=== PATIENT | male | born 1975 | race Native Hawaiian/Other Pacific Islander ===

== ENCOUNTER → 2017-08-25 | Outpatient (CLI) | payer BC ==
[2017-08-25 11:37] LABS: Basophils % (A) 1 %; Eosinophils # (A) 0.2 k/uL (0-0.7); Eosinophils % (A) 3 %; HGB 16.3 gm/dL (13.0-17.5); Lymphocytes # (A) 2.2 k/uL (1.0-4.8); Lymphocytes % (A) 30 %; MCH 29.6 pg (25.0-35.0); MCHC 34.7 g/dL (31.0-37.0); MCV 85.5 fL (80.0-100.0); Mean Platelet Volume 6.9; Monocytes # (A) 0.3 k/uL (0-1.0); Monocytes % (A) 4 %; Neutrophils # (A) 4.3 k/uL (1.3-7.7); Neutrophils % (A) 60 %; Platelet Count 214 k/uL (150-450); RDW 12.9 % (11.5-15.5); WBC 7.2 k/uL (3.8-10.6)
[2017-08-25 11:38] LABS: Partial Thromboplastin Time 23.8 sec (22.0-30.0); Prothrombin Time 10.2 sec (9.0-12.0)
--- NOTE | 2017-08-25 11:40 | XR ---
EXAMINATION TYPE: XR chest 2V DATE OF EXAM: 08/25/2017 COMPARISON: Chest x-ray June 05, 2015 HISTORY: Presurgical study. TECHNIQUE: Frontal and lateral views of the chest are obtained. FINDINGS: There is no focal air space opacity, pleural effusion, or pneumothorax seen. The cardiac silhouette size is within normal limits. Low lung volumes are redemonstrated. The osseous structures are intact. IMPRESSION: No acute cardiopulmonary process. No significant change from prior.
[2017-08-25 11:47] LABS: Appearance,Urine Clear (Clear); Bilirubin,Urine Negative (Negative); Blood,Urine Small (Negative); Color,Urine Yellow; Glucose,Urine (UA) Negative (Negative); Ketones,Urine Negative (Negative); Leukocyte Esterase,Urine Negative (Negative); Mucus,Urine Rare /hpf; Nitrite,Urine Negative (Negative); PH, Urine 6.5 (5.0-8.0); Protein,Urine Negative (Negative); RBC,Urine 14 /hpf (0-5); Specific Gravity,Urine 1.016 (1.001-1.035); Squamous Epithelial Cell,Urine <1 /hpf (0-4); Urobilinogen,Urine <2.0 mg/dL (<2.0); WBC,Urine <1 /hpf (0-5)
[2017-08-25 11:49] LABS: ALT 59 U/L (21-72); AST 31 U/L (17-59); Albumin 4.2 g/dL (3.5-5.0); Alkaline Phosphatase 82 U/L (38-126); Anion Gap 12 mmol/L; Blood Urea Nitrogen 14 mg/dL (9-20); Calcium 9.4 mg/dL (8.4-10.2); Carbon Dioxide 28 mmol/L (22-30); Chloride 105 mmol/L (98-107); Glucose 91 mg/dL (74-99); Sodium 145 mmol/L (137-145); Total Bilirubin 0.5 mg/dL (0.2-1.3); Total Protein 7.2 g/dL (6.3-8.2)
== END | disposition home or self-care (01) ==
LOC: LABPAT 10:38
PROVIDERS: ATTEND Orthopaedic Surgery Orthopaedic Surgery of the Spine
DX: Z01.818 Encounter for other preprocedural examination (principal); Z01.812 Encounter for preprocedural laboratory examination; M51.26 Other intervertebral disc displacement, lumbar region
CPT/HCPCS: 36415; 71046; 80053; 81001; 85025; 85610; 85730; 86850; 86900; 86901; 87070; 93005

== ENCOUNTER 2017-09-05 11:16 | Day surgery (SDC) | payer BC ==
[2017-08-31 10:05] VITALS: BMI 42.3
[~2017-09-05 11:16] MED LIST: BACITRACIN 50,000 UNIT, POLYMYXIN B 500,000 UNIT in SODIUM CHLORIDE 0.9% IRRIGATIO 1,00... IRRIGATION ONE; DEXAMETHASONE SOD PHOSPHATE 10 MG/ML 1 ML VIAL IV ONE; LIDOCAINE 1% 20 ML VIAL (10MG/ML) FOR IV START INTRADERMA PRN; MIDAZOLAM 2 MG/2 ML VIAL IV PRN; ONDANSETRON ODT 4 MG TAB PO ONE; SCOPOLAMINE 1.5MG/72HR PATCH TRANSDERM ONE; ceFAZolin IN SWFI 2 GM/20 ML SYRINGE IVP ONE; fentaNYL (PF) 50 MCG/ML 2 ML AMP IV PRN
[2017-09-05] MEDS: LACTATED RINGERS 1,000 ML IV SCH (11:43)
[2017-09-05] MEDS ORDERED: ONDANSETRON 4 MG/2 ML VIAL ONE (11:45)
[2017-09-05] MEDS ORDERED: ONDANSETRON 4 MG/2 ML VIAL IVP ONE (11:47)
[2017-09-05] MEDS ORDERED: LIDOCAINE 1% INJ 10MG/ML (20 ML MDV) ONE (12:44)
[2017-09-05] MEDS ORDERED: SUCCINYLCHOLINE CHLORIDE 100 MG/5 ML SYR IV ONE (12:44)
[2017-09-05] MEDS ORDERED: PROPOFOL 10 MG/ML 20 ML VIAL IV ONE (12:44)
[2017-09-05] MEDS ORDERED: fentaNYL (PF) 50 MCG/ML 2 ML AMP ONE (12:44)
[2017-09-05] MEDS ORDERED: MIDAZOLAM 2 MG/2 ML VIAL ONE (12:44)
[2017-09-05] MEDS ORDERED: LIDOCAINE 1%-EPI 1:100,000 20 ML VIAL SQ ONE ×2 (13:19→14:09)
[2017-09-05] MEDS ORDERED: THROMBIN (BOVINE) 5,000 UNIT VIAL TOPICAL ONE (13:22)
[2017-09-05] MEDS ORDERED: GELATIN SPONGE,ABSORB (LARGE) 1 EACH SPONGE TOPICAL ONE (13:22)
[2017-09-05] MEDS ORDERED: methylPREDNISolone ACETATE 80 MG/ML 1 ML VIAL MISCELLANE ONE (14:02)
--- NOTE | 2017-09-05 14:23 | FL ---
EXAMINATION TYPE: FL guidance operating room DATE OF EXAM: 09/05/2017 CLINICAL HISTORY: Lumbar laminectomy and discectomy TECHNIQUE: Fluoroscopy. COMPARISON: None. FINDINGS/IMPRESSION: Fluoroscopic guidance was provided during procedure performed by Dr. Hannah. A t otal of 4 seconds of fluoroscopic time was utilized during the procedure and 1 spot images was acquir ed and straightening localization of the lumbar spine.
[2017-09-05] MEDS ORDERED: DIAZEPAM 5 MG TAB PO PRN (14:32)
[2017-09-05] MEDS ORDERED: ONDANSETRON 4 MG/2 ML VIAL IVP PRN (14:32)
[2017-09-05] MEDS ORDERED: HYDROcodone/APAP 5-325MG 1 EACH TAB PO PRN (14:32)
[2017-09-05] MEDS ORDERED: BENZOCAINE/MENTHOL LOZENG 1 EACH LOZENGE MUCOUS MEM PRN (14:32)
[2017-09-05] MEDS ORDERED: MORPHINE SULFATE 4 MG/0.8 ML SYRINGE (INJ) IVP PRN (14:32)
[2017-09-05] MEDS ORDERED: MAGNESIUM HYDROXIDE 2,400 MG/10 ML CUP PO PRN (14:32)
--- NOTE | 2017-09-05 14:41 | P.OP ---
Date of Procedure: 09/05/17 Preoperative Diagnosis: Herniated nucleus pulposis, far lateral L4 5 Right lower extremity radiculopathy Degenerative disc disease Postoperative Diagnosis: Same Anesthesia: GETA Pathology: none sent Condition: stable Disposition: PACU Description of Procedure: BRIEF OPERATIVE NOTE Preoperative Diagnosis:Herniated nucleus pulposis, far lateral L4 5 Right lower extremity radiculopathy Degenerative disc disease Postoperative Diagnosis: Same Procedure: Laminectomy and decompression with foraminotomy and partial medial facetectomy L4 5 Discectomy for decompression L4 5 Use of fluoroscopic guidance Surgeon: Dr. Almonte Land Measurer: Chema Marte is present throughout the entire the case persistence during positioning, dissection, exposure, visualization, and all crucial elements of the case as well as closure. Anesthesia: General anesthesia Estimated blood loss:Less than 50 mL Complications: None apparent Components implanted:None Disposition: To recovery room in good stable condition. OPERATIVE INDICATIONS The patient has been having issues in their lower back and lower extremities. the patient was found have a far lateral disc herniation at L4 5 on the right which correlated well with his lower extremity symptoms and numbness and tingling. He was having progressive problems and pain and had some evidence of weakness in his right lower extremity. He has was significantly disrupting his ability to work and to do his regular daily activities. The patient has been through conservative treatment. he is not having any progress despite aggressive conservative treatment We discussed various treatment options including surgery, and the patient wishes to proceed with surgery We discussed the risk, patient's alternatives and benefits of surgery including but not limited to, risk of bleeding risk of infection, risk of need for further surgery , risk of decreased, loss of motion, loss of function, nerve damage, paralysis, heart attack, blindness and . OPERATIVE SUMMARY After discussing all the risks, patient alternatives and benefits at length, the patient elected to proceed with surgical intervention, signed informed consent, and presented for their procedure. The patient was seen and examined in the preoperative holding area and the surgical site was marked. The patient was given antibiotics and brought to the operating room. The patient was sedated and intubated by anesthesia in standard fashion. The patient was positioned on to the operating room table in a prone position on the appropriate frame which was well-padded and well molded. We were careful to pad any bony prominences and pressure points. We were careful to maintain the patient's cervical spine and good neutral alignment and position throughout. The patient was prepped and draped in a normal standard fashion. An appropriate timeout and keystone protocol performed. We were able to proceed with the surgery. Fluoroscopy was utilized to establish the appropriate level. The local wound area was infiltrated with local anesthetic. An incision was made at the midline longitudinally over the appropriate levels At L4 5. Dissection was taken down subcutaneously to the level of the fascia which was split midline. Dissection was taken over the lamina. Intraoperative fluoroscopy was taken which showed a marker at the appropriate level Of L4 5. With the appropriate level positively confirmed, we were able to proceed with laminectomy With partial facetectomy and foraminotomy at L4 5. The wound was copiously irrigated and suctioned dry as had been done periodically throughout the case. I performed a laminectomy with a combination of curettes and a high- speed bur and Kerrison rongeurs. A small medial facetectomy was performed again further access. A partial foraminotomy was also performed. Portions of the ligamentum flavum were taken down to expose the dura and traversing nerve root. had a partial medial facetectomy and did foraminotomy as well to gain further decompression. I was able to mobilize the traversing nerve root and gain access to the disc space. Note was made of obvious compression from the disc At the far lateral space. Protecting the soft tissue structures, a small annulotomy was established. I was able to perform discectomy and remove any extruded disc fragments and any loose fragments from within the disc itself. There is some disc desiccation noted. I was able to get good decompression at the neural foramen and remove far lateral disc herniation. I tried to preserve the disc annulus that appeared stable. There were no further extruded fragments noted. There is no evidence of dural tear or leak. Good hemostasis maintained. The wound was copiously irrigated and suctioned dry. Good decompression and discectomy was noted. We were able to proceed with closure. The fascia was closed for a watertight closure. The subcuticular tissue was closed with absorbable suture. The wound was cleaned and dried and dressed with the appropriate dressing. The drapes were broken down. The patient was gently rolled back onto their hospital bed being careful to maintain their cervical spine and good neutral alignment and position. They were woken up by anesthesia, extubated, and brought to the recovery room in good stable condition. The patient will be admitted to the hospital for observation and for appropriate postoperative care, medical management and monitoring. We will continue to follow them closely about the postoperative course.
[2017-09-05] MEDS ORDERED: NON-FORMULARY DRUG (Etanercept [Enbrel] 50 MG) SQ SCH (14:45)
[2017-09-05] MEDS: MORPHINE SULFATE 2 MG/ML SYRINGE IV PRN ×6 (14:51→15:29)
[2017-09-05] MEDS: MEPERIDINE 50 MG/ML SYRINGE IVP ONE ×2 (15:10→15:15)
[2017-09-05] MEDS: SODIUM CHLORIDE 0.9% 1,000 ML IV SCH (15:44)
[2017-09-05] MEDS ORDERED: ceFAZolin 3 GM in SODIUM CHLORIDE 0.9% 100 ML IVPB SCH (16:00)
[2017-09-05] MEDS: HYDROcodone/APAP 5-325MG 1 EACH TAB PO PRN ×2 (16:07→20:04)
[2017-09-05] MEDS: traMADol 50 MG TAB PO SCH ×2 (17:40→22:49)
[2017-09-05] MEDS: ceFAZolin IN SWFI 2 GM/20 ML SYRINGE IVP SCH (20:04)
[2017-09-05] MEDS: GABAPENTIN 100 MG CAP PO SCH (20:05)
[2017-09-06] MEDS: HYDROcodone/APAP 5-325MG 1 EACH TAB PO PRN ×2 (02:08→11:10)
[2017-09-06 02:34] VITALS: RESP 16
[2017-09-06] MEDS: SODIUM CHLORIDE 0.9% 1,000 ML IV SCH (05:17)
[2017-09-06] MEDS: ceFAZolin IN SWFI 2 GM/20 ML SYRINGE IVP SCH (05:44)
[2017-09-06] MEDS: LACTATED RINGERS 1,000 ML IV SCH (05:55)
[2017-09-06 06:48] VITALS: BP 116/70; PULSE 81; TEMP 97.8
[2017-09-06] MEDS: traMADol 50 MG TAB PO SCH (07:00)
[2017-09-06] MEDS ORDERED: HYDROmorphone 4 MG TABLET PO PRN (08:31)
[2017-09-06] MEDS ORDERED: SENNOSIDES-DOCUSATE SODIUM 1 EACH TAB PO SCH (09:00)
[2017-09-06] MEDS: GABAPENTIN 100 MG CAP PO SCH (11:22)
== END 2017-09-06 11:20 | disposition home or self-care (01) ==
LOC: OR 11:16 → 3SUR 14:27 → OR 09-06 11:20
PROVIDERS: ATTEND Orthopaedic Surgery Orthopaedic Surgery of the Spine
DX: M51.16 Intervertebral disc disorders with radiculopathy, lumbar region (principal); Z72.0 Tobacco use; Z79.891 Long term (current) use of opiate analgesic; L40.9 Psoriasis, unspecified; Z79.899 Other long term (current) drug therapy; Z88.6 Allergy status to analgesic agent
CPT/HCPCS: 63030; 94760; 97161; J2250; J1040; J1100; J2175; J2405; J2001; J3010; J2270 ×2; J0330; J2704; J0690 ×2; 86850; 86900; 86901

== ENCOUNTER → 2017-10-20 | Outpatient (CLI) | payer BC ==
--- NOTE | 2017-10-21 00:10 | MR ---
EXAMINATION TYPE: MR lumbar spine wo/w con DATE OF EXAM: 10/20/2017 COMPARISON: NONE HISTORY: Back pain TECHNIQUE: Multiplanar, multisequence images of the lumbar spine were acquired utilizing 7.5 mL intravenous gado linium contrast. Lumbar vertebra have normal alignment. There is posterior mild disc herniation at L4-5 posteriorly on the right side. There is right side L4 laminectomy defect. The sacroiliac joints are intact. There i s no lumbar paraspinal mass. I see no pathologic enhancement. There is some narrowing of the spinal c anal at L4-5. There is epidural fat posteriorly on the right side related to the surgery. There is th ickening of the right side L4 V nerve root. IMPRESSION: Postsurgical changes at L4-5 on the right side. Perineural thickening involving L4 V nerve root consi stent with scarring. There is a mild relative spinal stenosis at L4-5. Small posterior L4-5 disc bulg e.
== END | disposition home or self-care (01) ==
LOC: RADMRIMAIN 21:01
PROVIDERS: ATTEND Physician Assistant
DX: M48.061 Spinal stenosis, lumbar region without neurogenic claudication (principal); M51.26 Other intervertebral disc displacement, lumbar region; M51.16 Intervertebral disc disorders with radiculopathy, lumbar region; L40.9 Psoriasis, unspecified; Z98.890 Other specified postprocedural states
CPT/HCPCS: 72158; A9581

== ENCOUNTER → 2017-11-18 | Outpatient (CLI) | payer BC ==
[2017-11-18 09:36] LABS: Appearance,Urine Clear (Clear); Bilirubin,Urine Negative (Negative); Blood,Urine Small (Negative); Color,Urine Light Yellow; Glucose,Urine (UA) Negative (Negative); Ketones,Urine Negative (Negative); Leukocyte Esterase,Urine Negative (Negative); Mucus,Urine Rare /hpf; Nitrite,Urine Negative (Negative); PH, Urine 5.5 (5.0-8.0); Protein,Urine Negative (Negative); RBC,Urine 3 /hpf (0-5); Specific Gravity,Urine 1.013 (1.001-1.035); Urobilinogen,Urine <2.0 mg/dL (<2.0)
[2017-11-18 09:41] LABS: Basophils % (A) 1 %; Eosinophils # (A) 0.2 k/uL (0-0.7); Eosinophils % (A) 3 %; HCT 45.1 % (39.0-53.0); HGB 15.4 gm/dL (13.0-17.5); Lymphocytes # (A) 1.5 k/uL (1.0-4.8); Lymphocytes % (A) 27 %; MCH 30.2 pg (25.0-35.0); MCHC 34.1 g/dL (31.0-37.0); MCV 88.6 fL (80.0-100.0); Mean Platelet Volume 6.7; Monocytes # (A) 0.3 k/uL (0-1.0); Monocytes % (A) 5 %; Neutrophils # (A) 3.6 k/uL (1.3-7.7); Neutrophils % (A) 63 %; Platelet Count 188 k/uL (150-450); RBC 5.09 m/uL (4.30-5.90); RDW 13.5 % (11.5-15.5); WBC 5.7 k/uL (3.8-10.6)
[2017-11-18 09:45] LABS: Partial Thromboplastin Time 24.2 sec (22.0-30.0); Prothrombin Time 10.1 sec (9.0-12.0)
[2017-11-18 10:15] LABS: Anion Gap 10 mmol/L; Blood Urea Nitrogen 15 mg/dL (9-20); Calcium 9.1 mg/dL (8.4-10.2); Carbon Dioxide 27 mmol/L (22-30); Chloride 106 mmol/L (98-107); Glucose 103 mg/dL (74-99); Potassium 5.2 mmol/L (3.5-5.1); Sodium 143 mmol/L (137-145)
--- NOTE | 2017-11-18 12:22 | XR ---
EXAMINATION TYPE: XR chest 2V DATE OF EXAM: 11/18/2017 COMPARISON: Prior chest 08/25/2017 HISTORY: Preop TECHNIQUE: Frontal and lateral views of the chest are obtained. FINDINGS: There is no focal air space opacity, pleural effusion, or pneumothorax seen. The cardiac silhouette size is within normal limits. The osseous structures are intact. IMPRESSION: No acute cardiopulmonary process.
== END | disposition home or self-care (01) ==
LOC: LABPAT 08:34
PROVIDERS: ATTEND Orthopaedic Surgery Orthopaedic Surgery of the Spine
DX: Z01.818 Encounter for other preprocedural examination (principal); Z01.812 Encounter for preprocedural laboratory examination; M51.16 Intervertebral disc disorders with radiculopathy, lumbar region
CPT/HCPCS: 71046; 80048; 81001; 85025; 85610; 85730; 87070; 93005

== ENCOUNTER 2017-11-23 09:06 | Inpatient (IN) | payer BC, OTHER ==
[2017-11-15 13:35] VITALS: BMI 44.1
[~2017-11-23 09:06] MED LIST changes: -LIDOCAINE 1% 20 ML VIAL (10MG/ML) FOR IV START INTRADERMA PRN; +ONDANSETRON 4 MG/2 ML VIAL IVP ONE; -ONDANSETRON ODT 4 MG TAB PO ONE; -ceFAZolin IN SWFI 2 GM/20 ML SYRINGE IVP ONE
[2017-11-23] MEDS ORDERED: LIDOCAINE 1% 20 ML VIAL (10MG/ML) FOR IV START INTRADERMA ONE (11:45)
[2017-11-23] MEDS: LACTATED RINGERS 1,000 ML IV SCH (11:55)
[2017-11-23] MEDS ORDERED: ROCURONIUM BROMIDE 10 MG/ML 10 ML VIAL IV ONE (12:31)
[2017-11-23] MEDS ORDERED: LIDOCAINE 1% INJ 10MG/ML (20 ML MDV) ONE (12:31)
[2017-11-23] MEDS ORDERED: fentaNYL (PF) 50 MCG/ML 2 ML AMP ONE (12:31)
[2017-11-23] MEDS ORDERED: MIDAZOLAM 2 MG/2 ML VIAL ONE (12:31)
[2017-11-23] MEDS ORDERED: PROPOFOL 10 MG/ML 20 ML VIAL IV ONE (12:31)
[2017-11-23] MEDS ORDERED: HYDROmorphone (PF) 1 MG/ML ONE (12:31)
[2017-11-23] MEDS ORDERED: SUCCINYLCHOLINE CHLORIDE 100 MG/5 ML SYR IV ONE (12:31)
[2017-11-23] MEDS ORDERED: LIDOCAINE 0.5%-EPI 1:200,000 50 ML VIAL SQ ONE (12:35)
[2017-11-23] MEDS ORDERED: GELATIN SPONGE,ABSORB (LARGE) 1 EACH SPONGE TOPICAL ONE (12:35)
[2017-11-23] MEDS ORDERED: THROMBIN (BOVINE) 5,000 UNIT VIAL TOPICAL ONE (12:35)
[2017-11-23] MEDS ORDERED: LACTATED RINGERS 1,000 ML IV ONE ×2 (13:30→15:15)
[2017-11-23] MEDS ORDERED: HYDROcodone/APAP 5-325MG 1 EACH TAB PO PRN (15:52)
[2017-11-23] MEDS ORDERED: HYDROmorphone 1 MG/ML 1 ML SYRINGE IVP PRN (15:52)
[2017-11-23] MEDS ORDERED: ONDANSETRON 4 MG/2 ML VIAL IVP PRN (15:52)
[2017-11-23] MEDS ORDERED: BENZOCAINE/MENTHOL LOZENG 1 EACH LOZENGE MUCOUS MEM PRN (15:52)
[2017-11-23] MEDS ORDERED: DIAZEPAM 5 MG TAB PO PRN (15:52)
[2017-11-23] MEDS ORDERED: HYDROmorphone 0.5 MG/0.5 ML SYRINGE IVP PRN (15:52)
--- NOTE | 2017-11-23 15:57 | FL ---
EXAMINATION TYPE: FL guidance operating room, XR lumbar spine 2 or 3V DATE OF EXAM: 11/23/2017 CLINICAL HISTORY: Low back pain. TECHNIQUE: Fluoroscopy. Limited intraoperative 2 views lumbar spine COMPARISON: None. FINDINGS: Fluoroscopic guidance was provided during minimally invasive lumbar fusion procedure perfo rmed by Dr. Almonte. A total of 1 minute 48 seconds of fluoroscopic time was utilized during the proce dure and 2 spot intraoperative images are acquired. Images acquired show placement of metallic disc spacer and posterior interpedicular rods and screws a t lumbosacral junction with satisfactory alignment on intraoperative images saved. IMPRESSION: As Above.
[2017-11-23] MEDS ORDERED: ceFAZolin IN SWFI 2 GM/20 ML SYRINGE IVP SCH (16:00)
[2017-11-23] MEDS: HYDROmorphone 1 MG/ML 1 ML SYRINGE IVP ONE ×4 (16:00→17:06)
[2017-11-23] MEDS ORDERED: NON-FORMULARY DRUG (Etanercept [Enbrel] 50 MG) SQ SCH (16:00)
--- NOTE | 2017-11-23 16:03 | P.OP ---
Date of Procedure: 11/23/17 Preoperative Diagnosis: Recurrent disc herniation L4 5, right lower extremity radiculopathy with weakness, history of laminectomy discectomy L4 5, degenerative disc disease L4 5 Postoperative Diagnosis: Same Anesthesia: GETA Pathology: none sent Condition: stable Disposition: PACU Description of Procedure: DESCRIPTION OF PROCEDURE(S): BRIEF OPERATIVE NOTE Preoperative Diagnosis: Disc herniation L4 5, recurrent disc herniation L4 5, lower extremity radiculopathy with weakness, low back pain, history of laminectomy discectomy L4 5 Postoperative Diagnosis: Same Procedure: Revision Laminectomy and decompression L4 5 Minimally invasive Posterior lateral decompression and facet fusion L4 5 Minimally invasive Transforaminal lumbar interbody fusion for a 360 fusion L4 5 Discectomy for decompression L4 5 Placement of interbody graft L4 5 Local autogenous bone grafting Bone marrow aspiration via the pedicle of L4 on the right Use of Cell Saver Use of bone graft extenders Surgeon: Dr. Almonte Float Phlebotomist: Chema BOONE who is present throughout the entire the case persistence during positioning, dissection, exposure, visualization, and all crucial elements of the case as well as closure. Anesthesia: General anesthesia per Dr. Dr. Haque Estimated blood loss: Approximately 300 mL Complications: None apparent Components implanted: K2M minimally invasive [place] pedicle screw system with Bryan expandable interbody cage and 1 osteo amp sponge and 30 mL DBX bone fibers to supplemental local autogenous bone graft and bone marrow aspirate Disposition: To recovery room in good stable condition. OPERATIVE INDICATIONS The patient has had severe issues in their lower back and lower extremities. He initially sustained an injury when working where he sustained a disc herniation at L4 5. He underwent conservative treatment for this but failed conservative treatment and went on to have a laminectomy and discectomy at L4 5. He initially was doing quite well making good improvement however injury was significant at that level and had recurrence of the disc herniation at that level despite his initial decompression surgery. The patient had severe recurrence of his right lower extremity radiculopathy was becoming somewhat incapacitated due to this. He was unable to mobilize well unable to tolerate even light activities at home. He was unable to work. The patient has been through conservative treatment. He is not having any benefit despite aggressive conservative treatment. With the recurrent issue and the injury to the disc as well as the potential for recurrence again was felt that he would be a candidate for revision decompression with fusion at L4 5. We discussed the different treatment options ranging from revision decompression alone and discectomy with the possibility of decompression with fusion and he elected proceed with decompression and fusion. We discussed various treatment options including surgery, and the patient wishes to proceed with surgery We discussed the risk, patient's alternatives and benefits of surgery including but not limited to, risk of bleeding risk of infection, risk of need for further surgery , risk of decreased, loss of motion, muscle function, malunion nonunion, hardware failure, nerve damage, paralysis, heart attack, blindness and . OPERATIVE SUMMARY After discussing all the risks, patient alternatives and benefits at length, the patient elected to proceed with surgical intervention, signed informed consent, and presented for their procedure. The patient was seen and examined in the preoperative holding area and the surgical site was marked. The patient was given antibiotics and brought to the operating room. The patient was sedated and intubated by anesthesia in standard fashion. The patient was positioned on to the operating room table in a prone position on the appropriate frame which was well-padded and well molded. We were careful to pad any bony prominences and pressure points. We were careful to maintain the patient's cervical spine and good neutral alignment and position throughout. The patient was prepped and draped in a normal standard fashion. An appropriate timeout and keystone protocol performed. We were able to proceed with the surgery. The local wound area was infiltrated with local anesthetic. I was able utilize C-arm guidance to establish appropriate position over the pedicles bilaterally at the appropriate levels at L4 5. The patient's midline incision was well-healed. He does have eczema globally over his body significantly but we were able to avoid active eczema spots with incisions today. With the appropriate levels confirmed was able to make small stab incisions over the appropriate pedicle sites bilaterally at L4 5. Utilizing C- arm in his house able to establish a Jamshidi needle over the lateral aspect of the pedicle and advanced the trocar into the pedicle being careful not to breech superiorly inferiorly medially or laterally. Position was confirmed regularly with AP and lateral images on C-arm. I was able to establish the trocar into the pedicle appropriately into the posterior aspect of the vertebral body bilaterally at the appropriate levels of L4 5. This was done at each of the pedicle positions and each of the vertebrae. I was able place the guidewire into the trocar and into the vertebral body appropriately under C-arm guidance. Dissection was taken down over the wire to the appropriate starting position for the screw placed. The appropriate length screw was chosen, threaded over the guidewire and screwed appropriately into the pedicle and vertebral body under C-arm guidance in excellent alignment and position with good bony purchase. This is done at each of the screw sites at the appropriate levels at L4 5 bilaterally. At L4 on the right I did use a trocar to aspirate bone marrow aspirate from the vertebrae to be used later for supplementing the bone graft. With the screws intact I extended the incision to connect the screw hole sites on the most symptomatic side on the right. I had to remove small parts of the iliac crest to in order to establish the appropriate position of the retractor. All of the bone that was removed was saved for bone grafting. I dissected down to establish access over the pars and lamina to the base of the spinous process. I was able to expose the facet joint. The capsule the facet was taken down and showed some facet arthrosis at the joint. I was able to use a combination of curettes and Kerrison rongeurs and a high-speed drill to take down the facet joint and do a facetectomy. Partial laminectomy was also performed. I was able get excellent foraminal decompression and central decompression with undermining across midline to perform a laminectomy centrally and contralaterally. As able get good central decompression. The ligamentum flavum was taken down to further decompress centrally and at bilateral neural foramen. I was able to expose the disc space and visualize the traversing nerve root. Note was made of recurrent disc herniation at the far lateral aspect at the L4 5 level at the level causing further compression of the nerve root. I was able to remove any recurrent disc herniation at any other loose fragments to get further decompression from the discectomy. I was able to establish a annulotomy at the appropriate level protecting soft tissue and neural structures. Note was made of some disc desiccation at the disc. I performed a complete discectomy with accommodation of curettes and rasps and scrapers. I was able get good endplate preparation at the disc space at L4 5. I sized for the appropriate size interbody spacer protecting the soft tissue and neural structures. The wound was copiously irrigated and suctioned dry. There is no evidence of any dural tear or leak. I was able to pack the disc space with local autogenous bone graft as well as a small amount of bone graft which was also placed into the interbody cage itself. Protecting the soft tissue structures and neural structures I was able place the interbody cage in good alignment and good position with good fit and fill at the interbody space. His issues was confirmed with C-arm guidance. Good hemostasis maintained. There is no evidence of any dural tear or leak. The wound was irrigated and suctioned dry. With the hardware intact, intraoperative C-arm imaging was again taken which showed good alignment and position of the hardware at the appropriate levels. We were then able to measure, contour and place the rods and appropriate hardware bilaterally. I was able to place capcrews, tighten them down, and torque them with the torque screwdriver appropriately. With this intact I was able to place the local autogenous bone graft with additional bone graft enhancer as necessary into the posterior lateral gutters over the decorticated transverse processes. The remainder of the bone graft was placed over the facet joint on the contralateral side after taking down the facet joint capsule. With the bone graft intact, a stable construct, and good decompression at the appropriate levels, we were able to proceed with closure. Good hemostasis was maintained. There is no evidence of dural tear or leak. The fascia was closed for a watertight closure. he subcuticular tissue was closed with absorbable suture. The wound was cleaned and dried and dressed with the appropriate dressing. The drapes were broken down. The patient was gently rolled back onto their hospital bed being careful to maintain their cervical spine and good neutral alignment and position. They were woken up by anesthesia, extubated, and brought to the recovery room in good stable condition. The patient will be admitted to the hospital for appropriate postoperative care , medical management and monitoring. We will continue to follow them closely about the postoperative course.
[2017-11-23] MEDS ORDERED: MIDAZOLAM 2 MG/2 ML VIAL IVP ONE (16:25)
[2017-11-23] MEDS: MEPERIDINE 50 MG/ML SYRINGE IVP ONE ×2 (17:20→17:25)
[2017-11-23] MEDS ORDERED: diphenhydrAMINE 50 MG/ML 1 ML VIAL IVP ONE (17:25)
[2017-11-23] MEDS: HYDROmorphone 0.5 MG/0.5 ML SYRINGE IVP PRN ×2 (18:33→22:34)
[2017-11-23] MEDS: HYDROcodone/APAP 5-325MG 1 EACH TAB PO PRN (20:42)
[2017-11-23] MEDS: SODIUM CHLORIDE 0.9% 1,000 ML IV SCH (20:55)
[2017-11-23] MEDS: GABAPENTIN 400 MG CAP PO SCH (21:10)
[2017-11-24] MEDS: HYDROmorphone 0.5 MG/0.5 ML SYRINGE IVP PRN ×4 (03:05→19:54)
[2017-11-24] MEDS: SODIUM CHLORIDE 0.9% 1,000 ML IV SCH ×2 (05:00→22:28)
[2017-11-24] MEDS: GABAPENTIN 400 MG CAP PO SCH ×3 (05:04→20:13)
[2017-11-24] MEDS: HYDROcodone/APAP 5-325MG 1 EACH TAB PO PRN ×3 (05:04→21:28)
[2017-11-24] MEDS: LACTATED RINGERS 1,000 ML IV SCH (05:08)
[2017-11-24 09:29] LABS: Basophils % (A) 0 %; Eosinophils # (A) 0.1 k/uL (0-0.7); Eosinophils % (A) 2 %; HCT 39.9 % (39.0-53.0); HGB 13.6 gm/dL (13.0-17.5); Lymphocytes # (A) 1.5 k/uL (1.0-4.8); Lymphocytes % (A) 22 %; MCH 30.1 pg (25.0-35.0); MCV 88.5 fL (80.0-100.0); Mean Platelet Volume 6.9; Monocytes # (A) 0.3 k/uL (0-1.0); Monocytes % (A) 5 %; Neutrophils # (A) 4.9 k/uL (1.3-7.7); Neutrophils % (A) 70 %; Platelet Count 182 k/uL (150-450); RBC 4.51 m/uL (4.30-5.90); RDW 13.5 % (11.5-15.5); WBC 6.9 k/uL (3.8-10.6)
[2017-11-24 09:35] LABS: Anion Gap 6 mmol/L; Blood Urea Nitrogen 14 mg/dL (9-20); Calcium 8.3 mg/dL (8.4-10.2); Carbon Dioxide 29 mmol/L (22-30); Chloride 103 mmol/L (98-107); Glucose 92 mg/dL (74-99); Potassium 3.9 mmol/L (3.5-5.1); Sodium 138 mmol/L (137-145)
[2017-11-24] MEDS: SENNOSIDES-DOCUSATE SODIUM 1 EACH TAB PO SCH (11:10)
[2017-11-24] MEDS: NICOTINE 21MG/24HR PATCH TRANSDERM SCH (12:48)
--- NOTE | 2017-11-24 12:59 | P.PN ---
Progress Note - Text Progress Note Date: 11/24/17 Postoperative day #1 Patient is seen and examined today at bedside. The patient has some pain around the surgical site as expected. Pain is being controlled with medication. He feels his leg is still having some numbness but is not as painful. He has been up in in the hallways ambulate with walker Physical Exam Afebrile with stable vital signs Abdomen is soft nontender. Chest has good excursion deep and space expiration The incision site is clean dry and intact. No erythema there is no purulence. There was some small drainage at the site but it appears to be stable Extremities have not had neurologic change from prior to surgery. He has some weakness at his EHL which is unchanged prior to surgery. His good plantarflexion Calves and thighs were soft nontender without evidence of DVT. Assessment/Plan Postoperative day #1 status post minimally invasive decompression and fusion with revision decompression at L4 5 for his disc herniation with recurrence in his right lower extremity radiculopathy and weakness Patient is progressing as expected from the surgery. He still having some neurologic issues at his right lower extremity but these have not worsened since his surgery. We will see how he continues to improve as he mobilizes further We will continue to increase the patient's mobilization with therapy. We will continue pain control with oral or IV medications. We'll continue to follow patient closely. Hopefully he'll be okay for discharge home in the next 1 or 2 days. He would like to try to shower and I think it would be okay as long as he is a waterproof Tegaderm intact around his incision sites.
[2017-11-24] MEDS ORDERED: methylPREDNISolone SOD SUCCI 125 MG/2 ML VIAL IV STA (20:29)
--- NOTE | 2017-11-24 21:38 | XR ---
PROCEDURE: XR lumbar spine 3V DATE AND TIME: 11/24/2017 9:00 PM REFERRING PHYSICIAN: Joshua Almonte DO CLINICAL INDICATION: PHH, pain in foot TECHNIQUE: Department protocol. COMPARISON: None FINDINGS: The orthopedic hardware is intact without radiographic findings. There is no fracture or ma lalignment. The soft tissues are unremarkable. Multilevel degenerative facet changes are noted, moderate plus in degree. Multilevel [id number] degenerative disc changes. IMPRESSION: NO ACUTE PROCESS.
--- NOTE | 2017-11-24 21:49 | P.CONS ---
History of Present Illness - Reason for Consult Consult date: 11/24/17 Medical management - Chief Complaint Revision laminectomy L4-L5 - History of Present Illness Patient is a 42-year-old male with a known history of rheumatoid arthritis, psoriatic since and work-related injury to the back/disc bulging and previous history of L4-L5 laminectomy was admitted to the hospital for revision surgery. Patient has been having worsening right lower extremity radical for the pain from back since March 2017. Patient was admitted to the hospital for revision of laminectomy. Patient tolerated the procedure well. Currently pain is fairly controlled. Complaining of right lower extremities numbness otherwise. Able to flex his right foot slowly. No complaints of chest pain or shortness of breath. No nausea vomiting or abdominal pain. No fever no chills. Review of Systems Constitutional: Patient denies any fever or chills . No generalized weakness or weight loss. Abdomen: Patient denied nausea vomiting and diarrhea and abdominal pain. Cardiovascular: Patient denies any chest pain or short of breath no palpitations. Respiratory: patient denied any cough is from production. No shortness of breath Neurologic: Patient denied any numbness or tingling headache. Musculoskeletal: Patient denies any complaints of joint swelling or deformity. Right lower extremity numbness. Skin: Negative Psychiatric: Negative Endocrine: No heat or cold intolerance. No recent weight gain. Genitourinary: No dysuria or hematuria. All other 14 point ROS negative except the above Past Medical History Past Medical History: Pneumonia, Rheumatoid Arthritis (RA), Skin Disorder Additional Past Medical History / Comment(s): psoriasis, fell and work- injured back-bulging disk, History of Any Multi-Drug Resistant Organisms: None Reported Past Surgical History: Appendectomy, Back Surgery Additional Past Surgical History / Comment(s): Colonoscopy, laminectomy Past Anesthesia/Blood Transfusion Reactions: Previous Problems w/ Anesthesia, Motion Sickness Additional Past Anesthesia/Blood Transfusion Reaction / Comm: diff coming out one time, mother-had hard to come out after heart surgery Past Psychological History: No Psychological Hx Reported Smoking Status: Current every day smoker Past Alcohol Use History: Occasional Additional Past Alcohol Use History / Comment(s): Has smoked since 12-13 , yrs old 1/2-1 PPD. Past Drug Use History: None Reported - Past Family History Mother Family Medical History: Congestive Heart Failure (CHF), Coronary Artery Disease (CAD) Father Family Medical History: Cancer Medications and Allergies Home Medications Medication Instructions Recorded Confirmed Type Etanercept [Enbrel] 50 mg SQ Q14D 08/31/17 11/23/17 History traMADol HCL [Ultram] 50 - 100 mg PO Q6HR PRN 08/31/17 11/23/17 History Gabapentin 1,600 mg PO HS 11/15/17 11/23/17 History Gabapentin 800 mg PO BID@0530,1300 11/15/17 11/23/17 History HYDROcodone/APAP 5-325MG [[place] 5] 1 tab PO Q8HR PRN 11/15/17 11/23/17 History Allergies Allergy/AdvReac Type Severity Reaction Status Date / Time aspirin Allergy Rash/Hives Verified 11/23/17 19:13 ibuprofen [From Motrin] Allergy Swelling Verified 11/23/17 19:13 NSAIDS (Non-Steroidal Allergy Rash/Hives Verified 11/23/17 19:13 Anti-Inflamma venom-honey bee Allergy Anaphylaxis Verified 11/23/17 19:13 [bee venom (honey bee)] Physical Exam Vitals: Vital Signs Temp Pulse Pulse Resp BP Pulse Ox 11/24/17 14:08 99.3 F 90 19 134/84 93 L 11/24/17 09:00 99.4 F 76 18 104/63 97 11/23/17 23:55 99.7 F H 96 16 125/68 94 L 11/23/17 20:00 92 126/60 11/23/17 19:45 98 140/67 11/23/17 19:30 95 144/72 11/23/17 19:15 97 128/76 11/23/17 19:00 80 121/59 11/23/17 18:45 72 113/51 11/23/17 18:30 106 H 112/56 11/23/17 18:24 18 11/23/17 18:15 91 125/56 11/23/17 18:00 98.6 F 102 H 17 131/65 93 L 11/23/17 17:30 104 H 18 141/67 97 11/23/17 17:15 101 H 18 157/80 97 11/23/17 16:54 91 16 147/73 100 11/23/17 16:39 106 H 16 130/58 92 L 11/23/17 16:24 101 H 18 130/58 96 11/23/17 16:09 97.0 F L 103 H 16 138/73 96 Intake and Output 11/23/17 11/24/17 11/24/17 22:59 06:59 14:59 Intake Total 895 673 7288 Output Total 850 50 Balance 70 750 1560 Intake: IV 700 Intake, IV Titration 800 600 Amount Sodium Chloride 0.9% 1, 600 600 000 ml @ 75 mls/hr IV . [id number] [facility] Rx#:[id number] ceFAZolin 3 gm In Sodium 200 Chloride 0.9% 50 ml @ 100 mls/hr IVPB Q8H [facility] Rx#: [id number] Oral 220 960 Output: Drainage 50 Left Upper Thigh 50 Urine 550 Estimated Blood Loss 300 Other: Voiding Method Urinal # Voids 3 1 Weight 120.202 kg PHYSICAL EXAMINATION: Patient is lying in the bed comfortably, no acute distress, awake alert and oriented.. HEENT: Normocephalic. Neck is supple. Pupils reactive. Nostrils clear. Oral cavity is moist. Ears reveal no drainage. Neck reveals no JVD, carotid bruits, or thyromegaly. CHEST EXAMINATION: Trachea is central. Symmetrical expansion. Bibasilar diminished air entry. Lung dean clear to auscultation and percussion. CARDIAC: Normal S1, S2 with no gallops. No murmurs ABDOMEN: Soft. Bowel sounds normal. No organomegaly. No abdominal bruits. Extremities: reveal no edema. No clubbing or cyanosis Neurologically awake, alert, oriented x3 with well-coordinated movements. No focal deficits noted Skin: Patient does have psoriatic skin lesions and discoloration. not active. Psychiatric: Coperative. Nonsuicidal Musculoskeletal: No joint swelling or deformity. Decreased range of motion of right foot and right lower extremities.. Results CBC & Chem 7: 11/24/17 08:48 11/24/17 08:48 Labs: Abnormal Lab Results - Last 24 Hours (Table) 11/24/17 Range/Units 08:48 Calcium 8.3 L (8.4-10.2) mg/dL Assessment and Plan Assessment: Status post revision laminectomy of L4-L5 due to worsening radiculopathy pain Rheumatoid arthritis Psoriasis Currently everyday smoker Chronic back pain with disc bulging History of laminectomy Morbid obesity BMI 44.1 DVT prophylaxis. SCDs. No heparin due to neurological surgery. Plan: Patient be continued on pain management and bowel regimen. Continue with a incentive spirometry and SCDs. Continue the home medications and further recommendations based on clinical course. Smoking cessation has been counseled extensively. Will follow closely Further recommendations based on the clinical course. Time with Patient: Greater than 30
[2017-11-25] MEDS: HYDROmorphone 0.5 MG/0.5 ML SYRINGE IVP PRN ×3 (00:04→07:19)
[2017-11-25] MEDS: GABAPENTIN 400 MG CAP PO SCH ×3 (05:40→20:32)
[2017-11-25] MEDS: LACTATED RINGERS 1,000 ML IV SCH (05:42)
[2017-11-25 07:34] VITALS: RESP 16
[2017-11-25] MEDS: SODIUM CHLORIDE 0.9% 1,000 ML IV SCH ×2 (08:44→20:32)
[2017-11-25] MEDS: SENNOSIDES-DOCUSATE SODIUM 1 EACH TAB PO SCH (08:47)
[2017-11-25] MEDS: HYDROcodone/APAP 5-325MG 1 EACH TAB PO PRN ×4 (08:47→23:17)
[2017-11-25] MEDS: NICOTINE 21MG/24HR PATCH TRANSDERM SCH (08:48)
[2017-11-25] MEDS ORDERED: CYCLOBENZAPRINE 10 MG TAB PO PRN (08:57)
--- NOTE | 2017-11-25 08:57 | P.PN ---
Progress Note - Text Progress Note Date: 11/25/17 Orthopedic Spine Patient is a pleasant 43-year-old male who is seen and examined at the bedside following minimally invasive posterior lateral decompression and fusion performed Tuesday. Patient continues to have significant pain in the surgical sites and significant right lower extremity radiculopathy. He has been attempting to increase his ambulation. He has been ambulating slowly to part of the hallways. He continues to require Dilaudid IV and oral [place] for pain control. He has not been taking a muscle relaxer. He is known to take [place] an outpatient setting for pain control. He states he has not had a bowel movement since his admittance but is passing gas. He denies specific abdominal pain. Currently does not complain of nausea, vomiting, fever, or chills. Patient states pain has been fairly well controlled. Patient is eating and voiding freely without difficulty. Physical Exam Lumbar Fusion: Status post surgical day number 2 Patient is awake, alert, and oriented 3 Vital signs stable Good chest excursion with deep inspiration and expiration Abdomen soft nontender Dorsiflexion, plantarflexion, and extensor hallucis longus positive sustained bilaterally No signs or symptoms of DVT; no calf pain; pneumatic cuffs not currently intact bilateral lower extremities Dressing is clean, dry, and intact; no erythema, purulence, or signs of infection Neurovascularly intact bilaterally lower extremities Evidence of significant plaque psoriasis over the back and bilateral lower extremities Assessment: L4-5 minimally invasive posterior lateral decompression and fusion with transforaminal lumbar interbody fusion Low back pain Right lower extremity radiculopathy Plaque psoriasis Plan: 1. Ambulate as tolerated; work with Physical Therapy to increase mobilization 2. Continue pain control with IV and oral medications; We will plan to add Flexeril 10 mg which he may take for muscle spasms of the lumbar spine; we'll plan to start weaning off IV Dilaudid in anticipation for discharge 3. Telfa and Tegaderm dressing to remain intact 4. Medical management can continue to manage patient for patient's other medical issues 5. We will continue to follow the patient closely; patient is able to have some improvement throughout the day, or implant for discharge home as early as tomorrow, 11/27/2007 6. Patient can follow-up with Chema Johnson PA-C or Dr. Fabio Almonte at [facility] in 2-3 weeks following discharge
[2017-11-25] MEDS: MAGNESIUM HYDROXIDE 2,400 MG/10 ML CUP PO PRN (13:38)
--- NOTE | 2017-11-25 16:40 | P.PN ---
Subjective Progress Note Date: 11/25/17 Progress note being dictated for Dr. Kwong Interval history:Patient is a 42-year-old male with a known history of rheumatoid arthritis, psoriatic since and work-related injury to the back/disc bulging and previous history of L4-L5 laminectomy was admitted to the hospital for revision surgery. Patient has been having worsening right lower extremity radical for the pain from back since March 2017. Patient was admitted to the hospital for revision of laminectomy. Patient tolerated the procedure well. Currently pain is fairly controlled. Complaining of right lower extremities numbness otherwise. Able to flex his right foot slowly. No complaints of chest pain or shortness of breath. No nausea vomiting or abdominal pain. No fever no chills. Review of Systems Constitutional: Patient denies any fever or chills . No generalized weakness or weight loss. Abdomen: Patient denied nausea vomiting and diarrhea and abdominal pain. Cardiovascular: Patient denies any chest pain or short of breath no palpitations. Respiratory: patient denied any cough is from production. No shortness of breath Neurologic: Patient denied any numbness or tingling headache. Musculoskeletal: Patient denies any complaints of joint swelling or deformity. Right lower extremity numbness. Skin: Negative Psychiatric: Negative Endocrine: No heat or cold intolerance. No recent weight gain. Genitourinary: No dysuria or hematuria. All other 14 point ROS negative except the above 11/25/2017 currently afebrile ,T-max 100. Continues to have significant pain with right lower extremity radiculopathy. Flexeril has been added into med regime as per orthopedics. Minimal nausea earlier this morning, subsided. Ambulating with physical therapy. Denies lightheadedness dizziness or focal deficits. Denies chest pain, palpitations or increasing shortness of breath. Passing flatus, no bowel movement. Objective - Vital Signs Vital signs: Vital Signs Temp 97.7 F 11/25/17 07:34 Pulse 89 11/25/17 07:34 Resp 16 11/25/17 07:34 BP 121/76 11/25/17 07:34 Pulse Ox 93 L 11/25/17 07:34 Intake & Output 11/24/17 11/25/17 11/25/17 18:59 06:59 18:59 Intake Total 1560 750 240 Output Total 400 Balance 1560 750 -160 Intake: Intake, IV Titration 600 Amount Sodium Chloride 0.9% 1, 600 000 ml @ 75 mls/hr IV . [id number] [facility] Rx#:[id number] Oral 960 750 240 Output: Urine 400 Other: Voiding Method Urinal # Voids 1 1 - Exam Patient is lying in the bed comfortably, no acute distress, awake alert and oriented.. HEENT: Normocephalic. Neck is supple. Pupils reactive. Nostrils clear. Oral cavity is moist. Ears reveal no drainage. Neck reveals no JVD, carotid bruits, or thyromegaly. CHEST EXAMINATION: Trachea is central. Symmetrical expansion. Bibasilar diminished air entry. Lung dean clear to auscultation and percussion. CARDIAC: Normal S1, S2 with no gallops. No murmurs ABDOMEN: Soft. Bowel sounds normal. No organomegaly. No abdominal bruits. Extremities: reveal no edema. No clubbing or cyanosis Neurologically awake, alert, oriented x3 with well-coordinated movements. No focal deficits noted Skin: Patient does have psoriatic skin lesions and discoloration. not active. Psychiatric: Coperative. Nonsuicidal Musculoskeletal: No joint swelling or deformity. Decreased range of motion of right foot and right lower extremities.. - Labs CBC & Chem 7: 11/24/17 08:48 11/24/17 08:48 Assessment and Plan Assessment: Status post revision laminectomy of L4-L5 due to worsening radiculopathy pain Rheumatoid arthritis Psoriasis Currently everyday smoker Chronic back pain with disc bulging History of laminectomy Morbid obesity BMI 44.1 DVT prophylaxis. SCDs. No heparin due to neurological surgery. Plan: Continue on current medication regime ,monitoring and symptomatic treatment. Pain management and bowel regimen. Aggressive pulmonary toileting with incentive spirometer reinforced. Mild fever earlier this morning, UA, urine culture ordered. The impression and plan of care has been dictated as directed. : I performed a history and examination of this patient, discussed the same with the dictator. I agree with the dictator's note ,documented as a scribe. Any additional findings or plans will be noted.
[2017-11-25 20:18] LABS: Amorphous Sediment,Urine Rare /hpf; Appearance,Urine Clear (Clear); Bilirubin,Urine Negative (Negative); Blood,Urine Moderate (Negative); Color,Urine Yellow; Glucose,Urine (UA) Negative (Negative); Hyaline Casts,Urine 1 /lpf (0-2); Ketones,Urine Negative (Negative); Leukocyte Esterase,Urine Negative (Negative); Mucus,Urine Rare /hpf; Nitrite,Urine Negative (Negative); Protein,Urine Negative (Negative); RBC,Urine 10 /hpf (0-5); Specific Gravity,Urine 1.013 (1.001-1.035); WBC,Urine <1 /hpf (0-5)
[2017-11-26] MEDS: MAGNESIUM HYDROXIDE 2,400 MG/10 ML CUP PO PRN (01:57)
[2017-11-26] MEDS: LACTATED RINGERS 1,000 ML IV SCH (03:35)
[2017-11-26] MEDS: HYDROcodone/APAP 5-325MG 1 EACH TAB PO PRN ×3 (03:59→13:04)
[2017-11-26 07:03] LABS: Basophils % (A) 0 %; Eosinophils # (A) 0.2 k/uL (0-0.7); Eosinophils % (A) 2 %; HCT 38.8 % (39.0-53.0); HGB 13.1 gm/dL (13.0-17.5); Lymphocytes # (A) 2.4 k/uL (1.0-4.8); Lymphocytes % (A) 25 %; MCH 29.5 pg (25.0-35.0); MCHC 33.7 g/dL (31.0-37.0); MCV 87.4 fL (80.0-100.0); Mean Platelet Volume 7.1; Monocytes # (A) 0.4 k/uL (0-1.0); Monocytes % (A) 4 %; Neutrophils # (A) 6.3 k/uL (1.3-7.7); Neutrophils % (A) 66 %; Platelet Count 192 k/uL (150-450); RBC 4.44 m/uL (4.30-5.90); RDW 13.2 % (11.5-15.5); WBC 9.5 k/uL (3.8-10.6)
[2017-11-26 07:21] LABS: Anion Gap 8 mmol/L; Blood Urea Nitrogen 14 mg/dL (9-20); Calcium 8.5 mg/dL (8.4-10.2); Carbon Dioxide 28 mmol/L (22-30); Chloride 104 mmol/L (98-107); Glucose 147 mg/dL (74-99); Potassium 4.1 mmol/L (3.5-5.1); Sodium 140 mmol/L (137-145)
[2017-11-26] MEDS: GABAPENTIN 400 MG CAP PO SCH (07:42)
[2017-11-26] MEDS: NICOTINE 21MG/24HR PATCH TRANSDERM SCH (08:40)
[2017-11-26] MEDS: SENNOSIDES-DOCUSATE SODIUM 1 EACH TAB PO SCH (08:40)
--- NOTE | 2017-11-26 09:22 | P.DS ---
Providers Date of admission: 11/23/17 11:00 Attending physician: Joshua Almonte Consults: 11/23/17 15:52 Consult Physician Routine Consulting Provider: Lelia Angulo Consult Reason/Comments: Medical management Do you want consulting provider notified?: Yes 11/23/17 17:12 Consult Physician Routine Consulting Provider: Bran Brizuela Consult Reason/Comments: medical management Do you want consulting provider notified?: Yes Primary care physician: Lelia Angulo Hospital Course: The patient presented on the day of admission as per his operative note. He is having recurrent severe pain in his right lower extremity due to recurrent disc herniation. He underwent decompression and fusion revision decompression at his lumbar spine in this regard. He still feeling significant issues in his right lower extremity with needle type pain when he stands on his leg. There is been some change from prior to surgery but he still has significant numbness. He has improved his mobility though his back still sore on surgical site as expected. Physical Exam The incision site is clean dry and intact. There is no erythema no drainage. There is no purulence no evidence of infection. His skin has significant eczema globally but there is no evidence of any infection around the incision site Abdomen soft and nontender. Chest has good excursion with deep inspiration and expiration. The patient has active and passive range of motion intact at the upper and lower extremities. There is no acute change in neurologic status. There is still some weakness with dorsiflexion at the right Hospital Course Postoperative day #3 status post revision decompression with fusion at lumbar spine for recurrent disc herniation and lower extremity radiculopathy with weakness. The patient has been making adequate progress postoperatively. He still having significant symptoms at his right lower extremity and we will have to wait and see how the nerve heals now that has been decompressed area decompression went well at time of surgery and there is no evidence of any change in the edition of the hardware postoperatively. He has been able to increase his mobility with some degree and his pain is now controlled adequately with oral medication. They have completed the prophylactic antibiotics without any signs or symptoms of infection. The patient has been able to advance their diet, and is tolerating diet adequately. The pain was initially controlled with IV medications and is now controlled appropriately with oral medications. The patient has been able to increase their mobilization. The patient has progressed appropriately. I think they are in stable condition for discharge today. They will be sent home with appropriate prescriptions. I answered their questions to the best of my ability in a language that they can understand and they are agreeable with the plan. They will follow up as directed in approximately 2 weeks or sooner if he is having problems. Patient Condition at Discharge: Fair Plan - Discharge Summary Discharge Rx Participant: Yes New Discharge Prescriptions: New HYDROcodone/APAP 7.5-325MG [[place] 7.5-325] 1 - 2 each PO Q6HR PRN #56 tab PRN Reason: Pain No Action traMADol HCL [Ultram] 50 - 100 mg PO Q6HR PRN PRN Reason: Pain Etanercept [Enbrel] 50 mg SQ Q14D Gabapentin 1,600 mg PO HS Gabapentin 800 mg PO BID@0530,1300 HYDROcodone/APAP 5-325MG [[place] 5] 1 tab PO Q8HR PRN PRN Reason: Pain Discharge Medication List Etanercept [Enbrel] 50 mg SQ Q14D 08/31/17 [History] traMADol HCL [Ultram] 50 - 100 mg PO Q6HR PRN 08/31/17 [History] Gabapentin 1,600 mg PO HS 11/15/17 [History] Gabapentin 800 mg PO BID@0530,1300 11/15/17 [History] HYDROcodone/APAP 5-325MG [[place] 5] 1 tab PO Q8HR PRN 11/15/17 [History] HYDROcodone/APAP 7.5-325MG [[place] 7.5-325] 1 - 2 each PO Q6HR PRN #56 tab [Rx] Follow up Appointment(s)/Referral(s): Chema Johnson, BHUPENDRA [PHYSICIAN GEOTHERMAL OPERATING ENGINEER] - 12/09/17 2:30 pm (Patient may follow-up with Chema Johnson PA-C or Dr. Fabio Almonte at [facility] in 2-3 weeks following discharge. ) Activity/Diet/Wound Care/Special Instructions: [facility] - [phone] - will deliver to bedside. 1. Patient may shower with Tegaderm dressing intact. 2. Patient may remove Tegaderm dressing in 3 days and shower without a dressing at that time. 3. Patient should keep Steri-Strips intact and allow them to fall off naturally. 4. Patient should refrain from driving until at least after their first follow- up appointment in the office. 5. Patient should avoid excessive bending, twisting, and lifting; no lifting greater than 10 pounds 6. Take medications as prescribed 7. Do not soak in tub Discharge Disposition: HOME SELF-CARE
[2017-11-26 10:23] VITALS: BP 133/81; PULSE 76; TEMP 98.2
--- NOTE | 2017-11-27 01:14 | P.PN ---
Subjective Progress Note Date: 11/26/17 Principal diagnosis: Revision of laminectomy Interval history:Patient is a 42-year-old male with a known history of rheumatoid arthritis, psoriatic since and work-related injury to the back/disc bulging and previous history of L4-L5 laminectomy was admitted to the hospital for revision surgery. Patient has been having worsening right lower extremity radical for the pain from back since March 2017. Patient was admitted to the hospital for revision of laminectomy. Patient tolerated the procedure well. Currently pain is fairly controlled. Complaining of right lower extremities numbness otherwise. Able to flex his right foot slowly. No complaints of chest pain or shortness of breath. No nausea vomiting or abdominal pain. No fever no chills. Review of Systems Constitutional: Patient denies any fever or chills . No generalized weakness or weight loss. Abdomen: Patient denied nausea vomiting and diarrhea and abdominal pain. Cardiovascular: Patient denies any chest pain or short of breath no palpitations. Respiratory: patient denied any cough is from production. No shortness of breath Neurologic: Patient denied any numbness or tingling headache. Musculoskeletal: Patient denies any complaints of joint swelling or deformity. Right lower extremity numbness. Skin: Negative Psychiatric: Negative Endocrine: No heat or cold intolerance. No recent weight gain. Genitourinary: No dysuria or hematuria. All other 14 point ROS negative except the above 11/25/2017 currently afebrile ,T-max 100. Continues to have significant pain with right lower extremity radiculopathy. Flexeril has been added into med regime as per orthopedics. Minimal nausea earlier this morning, subsided. Ambulating with physical therapy. Denies lightheadedness dizziness or focal deficits. Denies chest pain, palpitations or increasing shortness of breath. Passing flatus, no bowel movement. 11/26/2017 Patient says that his pain is much better now. No complaints of chest pain or shortness of breath. Patient remains afebrile now. Tolerating oral diet and ambulating with physical therapy. Denied any headache or dizziness or lightheadedness. No complaints of leg swelling. Patient continues to have difficulty in raising right foot. All other review of systems negative except the above Current medications reviewed Objective - Vital Signs Vital signs: Vital Signs Temp 98.2 F 11/26/17 07:38 Pulse 76 11/26/17 07:38 Resp 16 11/26/17 07:38 BP 133/81 11/26/17 07:38 Pulse Ox 97 11/26/17 07:38 Intake & Output 11/25/17 11/26/17 11/26/17 18:59 06:59 18:59 Intake Total 480 960 Output Total 400 Balance 80 960 Intake: Oral 480 960 Output: Urine 400 Other: # Voids 1 2 - Exam - Exam Patient is lying in the bed comfortably, no acute distress, awake alert and oriented.. HEENT: Normocephalic. Neck is supple. Pupils reactive. Nostrils clear. Oral cavity is moist. Ears reveal no drainage. Neck reveals no JVD, carotid bruits, or thyromegaly. CHEST EXAMINATION: Trachea is central. Symmetrical expansion. Bibasilar diminished air entry. Lung dean clear to auscultation and percussion. CARDIAC: Normal S1, S2 with no gallops. No murmurs ABDOMEN: Soft. Bowel sounds normal. No organomegaly. No abdominal bruits. Extremities: reveal no edema. No clubbing or cyanosis Neurologically awake, alert, oriented x3 with well-coordinated movements. No focal deficits noted Skin: Patient does have psoriatic skin lesions and discoloration. not active. Psychiatric: Coperative. Nonsuicidal Musculoskeletal: No joint swelling or deformity. Decreased range of motion of right foot and right lower extremities.. - Labs CBC & Chem 7: 11/26/17 06:40 11/26/17 06:40 Labs: Abnormal Lab Results - Last 24 Hours (Table) 11/25/17 11/26/17 11/26/17 Range/Units 18:09 06:40 06:40 Hct 38.8 L (39.0-53.0) % Glucose 147 H (74-99) mg/dL Urine Blood Moderate H (Negative) Urine RBC 10 H (0-5) /hpf Amorphous Sediment Rare H (None) /hpf Urine Mucus Rare H (None) /hpf Microbiology - Last 24 Hours (Table) 11/25/17 18:09 Urine Culture - Preliminary Urine,Voided Assessment and Plan Assessment: Status post revision laminectomy of L4-L5 due to worsening radiculopathy pain Postoperative fever resolved Rheumatoid arthritis Psoriasis Currently everyday smoker Chronic back pain with disc bulging History of laminectomy Morbid obesity BMI 44.1 DVT prophylaxis. SCDs. No heparin due to neurological surgery. Plan: Patient be continued on pain management and bowel regimen. Continue with a incentive spirometry and SCDs. Continue the home medications and further recommendations based on clinical course. Smoking cessation has been counseled extensively. Patient is being discharged home. Time with Patient: Greater than 30
--- NOTE | 2017-11-28 16:58 | CDI ---
Last Revision, April 2017 Documentation Clarification Form Date: 11/28/2017 12:00:00 AM From: Erin Llanos RN, CCDS Admit Date: 11/23/2017 11:00:00 AM Patient Name: Kevin Serrano Visit Number: [id number] Discharge Date: ATTENTION: The Clinical Documentation Specialists (CDI) and [facility] Coding Staff appreciate your assistance in clarifying documentation. Please respond to the clarification below the line at the bottom and electronically sign. The CDI & [facility] Coding staff will review the response and follow-up if needed. Please note: Queries are made part of the Legal Health Record. If you have any questions, please contact the author of this message via ITS. Dr. Chela Kwong Post-Op fever is documented in the progress notes on 11/25/17 and. History/Risk Factors: Rheumatoid Arthritis, Back injury, Current every day smoker Clinical Indicators present with work-related injury to back/disc bulging and previous history of L4-5 laminectomy was admitted for revision surgery. Mild fever earlier this morning, UA, urine culture ordered. 11/25/17 at 00:25 vital signs 124/78 63 18 100.0 Urine culture: No growth after 18 hours WBC 6.9, 9.5 11/26/ progress notes: patient remains afebrile now. 133/81 76 16 98.2 Postoperative resolved Treatment: Monitor Labs, Vital signs In order to accurately reflect the patients severity of condition; please clarify if fever is a complication of the surgical procedure? Indicate any clinical significance. Yes No Other, please specify Unable to determine Please continue to document in your progress notes and discharge summary in order to capture severity of illness and risk of mortality. Include clinical findings that support your diagnosis. Fever is not a postop complication; isolated, asymptomatic, normal WBC, UA negative, urine culture negative... No indication of infection. MTDD
== END 2017-11-26 13:50 | disposition home or self-care (01) | DRG 454 ==
LOC: 2ORMAIN 11:00 → 3SUR 15:59
PROVIDERS: ADMIT Orthopaedic Surgery Orthopaedic Surgery of the Spine; ATTEND Orthopaedic Surgery Orthopaedic Surgery of the Spine
PROC: 0SG0071 Fusion of Lumbar Vertebral Joint with Autologous Tissue Substitute, Posterior Approach, Posterior Column, Open Approach (ICD-10-PCS; 2017-11-23)
PROC: 0ST20ZZ Resection of Lumbar Vertebral Disc, Open Approach (ICD-10-PCS; 2017-11-23)
PROC: 07DS3ZZ Extraction of Vertebral Bone Marrow, Percutaneous Approach (ICD-10-PCS; 2017-11-23)
PROC: 4A11X4G Monitoring of Peripheral Nervous Electrical Activity, Intraoperative, External Approach (ICD-10-PCS; 2017-11-23)
PROC: 30233N0 Transfusion of Autologous Red Blood Cells into Peripheral Vein, Percutaneous Approach (ICD-10-PCS; 2017-11-23)
PROC: 0SG00AJ Fusion of Lumbar Vertebral Joint with Interbody Fusion Device, Posterior Approach, Anterior Column, Open Approach (ICD-10-PCS; principal; 2017-11-23 12:45)
DX: M51.16 Intervertebral disc disorders with radiculopathy, lumbar region (principal); Z68.41 Body mass index [BMI] 40.0-44.9, adult; E66.01 Morbid (severe) obesity due to excess calories; G89.29 Other chronic pain; M06.9 Rheumatoid arthritis, unspecified; L40.0 Psoriasis vulgaris; F17.210 Nicotine dependence, cigarettes, uncomplicated; Z71.6 Tobacco abuse counseling; Z79.899 Other long term (current) drug therapy; Z87.01 Personal history of pneumonia (recurrent); Z88.6 Allergy status to analgesic agent; Z88.8 Allergy status to other drugs, medicaments and biological substances; Z91.030 Bee allergy status; Z83.3 Family history of diabetes mellitus; Z82.69 Family history of other diseases of the musculoskeletal system and connective tissue; Z82.49 Family history of ischemic heart disease and other diseases of the circulatory system
CPT/HCPCS: 72100; 80048; 81001; 84132; 85025; 86850; 86900; 86901; 87086

== ENCOUNTER → 2018-07-18 | Outpatient (CLI) | payer OTHER ==
[2018-07-18 13:11] LABS: HCT 48.9 % (39.0-53.0); HGB 15.9 gm/dL (13.0-17.5); MCH 28.7 pg (25.0-35.0); MCHC 32.5 g/dL (31.0-37.0); MCV 88.4 fL (80.0-100.0); Platelet Count 229 k/uL (150-450); RBC 5.53 m/uL (4.30-5.90); RDW 12.9 % (11.5-15.5); WBC 7.6 k/uL (3.8-10.6)
[2018-07-18 13:17] LABS: Anion Gap 7 mmol/L; Blood Urea Nitrogen 17 mg/dL (9-20); Carbon Dioxide 28 mmol/L (22-30); Chloride 106 mmol/L (98-107); Glucose 98 mg/dL (74-99); Potassium 4.7 mmol/L (3.5-5.1); Sodium 141 mmol/L (137-145)
== END | disposition home or self-care (01) ==
LOC: LABPAT 11:48
PROVIDERS: ATTEND Internal Medicine Interventional Cardiology
DX: Z01.812 Encounter for preprocedural laboratory examination (principal); I20.0 Unstable angina; R94.30 Abnormal result of cardiovascular function study, unspecified
CPT/HCPCS: 80051; 82565; 82947; 84520; 85027

== ENCOUNTER 2018-08-01 09:08 | Day surgery (SDC) | payer OTHER ==
[2018-07-25 14:56] VITALS: BMI 42.9
[~2018-08-01 09:08] MED LIST changes: +ALPRAZolam 0.25 MG TAB PO PRN; +ALPRAZolam 0.5 MG TAB PO PRN; +ASPIRIN 325 MG TAB PO ONE; +ATORVASTATIN 80 MG TAB PO ONE; -BACITRACIN 50,000 UNIT, POLYMYXIN B 500,000 UNIT in SODIUM CHLORIDE 0.9% IRRIGATIO 1,00... IRRIGATION ONE; -DEXAMETHASONE SOD PHOSPHATE 10 MG/ML 1 ML VIAL IV ONE; -MIDAZOLAM 2 MG/2 ML VIAL IV PRN; +NITROGLYCERIN SL TABS 0.4 MG TAB SUBLINGUAL PRN; -ONDANSETRON 4 MG/2 ML VIAL IVP ONE; -SCOPOLAMINE 1.5MG/72HR PATCH TRANSDERM ONE; +SODIUM CHLORIDE 0.9% 1,000 ML in EMPTY BAG 1 BAG IV ONE; -fentaNYL (PF) 50 MCG/ML 2 ML AMP IV PRN
[2018-08-01 09:55] VITALS: PULSE 63; RESP 20; TEMP 98
[2018-08-01] MEDS ORDERED: HEPARIN SODIUM 1,000 UN/ML (10ML VL) ONE (10:44)
[2018-08-01] MEDS ORDERED: VERAPAMIL 2.5 MG/ML 2 ML AMP ONE (10:44)
[2018-08-01] MEDS ORDERED: SODIUM CHLORIDE 0.9% 1,000 ML IV ONE (10:51)
[2018-08-01] MEDS ORDERED: SODIUM CHLORIDE 0.9% 1,000 ML IV SCH (11:00)
[2018-08-01] MEDS: MIDAZOLAM 2 MG/2 ML VIAL IVP ONE ×2 (11:01→11:14)
[2018-08-01] MEDS ORDERED: LIDOCAINE 2% INJ 20 MG/ML SQ ONE (11:14)
[2018-08-01] MEDS ORDERED: HEPARIN SODIUM 1,000 UN/ML (10ML VL) IV ONE (11:16)
[2018-08-01] MEDS ORDERED: VERAPAMIL SYRINGE (5 MG/10 ML) INTRAARTER ONE (11:16)
[2018-08-01] MEDS ORDERED: HYDROmorphone 2 MG/ML 1 ML SYRINGE IVP ONE (11:30)
[2018-08-01] MEDS ORDERED: IOPAMIDOL-370 100ML BTL INJ ONE (11:31)
[2018-08-01] MEDS ORDERED: RX INFO: IV CONTRAST WAS GIVEN 1 EACH MISC MISCELLANE PRN (12:11)
--- NOTE | 2018-08-01 12:55 | CC ---
CARDIAC CATHETERIZATION REPORT DATE OF SERVICE: 08/01/2018 PROCEDURE: Left heart catheterization, coronary angiography, left ventriculography. PERFORMED BY: Dr. Olya Washington. Moderate conscious sedation time was 24 minutes. Patient was administered Versed. Oxygen saturation, hemodynamics and EKG were monitored closely. CLINICAL INFORMATION: Mr. Kevin Serrano is a 43-year-old gentleman with history of smoking and family history of CAD, who had abnormal stress test, was advised cardiac catheterization after due discussion regarding risks, benefits, and options. PROCEDURE NOTE: Under local anesthesia and strict aseptic precautions, a 6-Yoruba introducer was placed in the right radial artery. Using a JL3.5 and JR4 diagnostic catheters I performed coronary angiography and a pigtail catheter was used to perform left ventriculography. The patient tolerated procedure well. The sheath was taken out and TR band applied as per protocol. The saturation of the fingers of the right hand was 97%. The patient was sent to the room in a stable condition. Results were discussed with the patient and family. CARDIAC CATHETERIZATION FINDINGS: The left ventricular end-diastolic pressure was about 30 mmHg. There was no gradient across aortic valve. CORONARY ANGIOGRAPHY FINDINGS: RIGHT CORONARY ARTERY: This is a large dominant vessel. No significant disease. Distally bifurcates into PDA and PLV. The PLV then again sub divides into 2 smaller branches. There is no significant disease in the branches or the main RCA which is a dominant vessel and supplies a fair amount of myocardium. LEFT MAIN CORONARY ARTERY: This is a short patent vessel free of significant disease that bifurcates into LAD and circumflex. Left main itself is short and free of significant disease. LEFT ANTERIOR DESCENDING CORONARY ARTERY: Good caliber vessel extends along the anterior wall, gives off a good-sized diagonal branch in the midportion that is free of significant disease. It gives off small septal branches runs all the way to the apex supplying a sizable amount of myocardium and curves over the inferoapical portion of left ventricle. No significant disease in the LAD system. LEFT POSTERIOR CIRCUMFLEX CORONARY ARTERY: Nondominant vessel gives off a single obtuse marginal that runs laterally and then continues as a posterolateral branch. Minor irregularities. No significant disease in the nondominant circumflex. LEFT VENTRICULOGRAM: This was performed in 30-degree ANDREW projection, revealed left ventricle is of normal size with good systolic function. Ejection fraction is 55% to 60% by visual inspection. There is no mitral regurgitation. There is no wall motion abnormality. FINAL IMPRESSION: This patient has a right dominant system. Normal filling pressures. No gradient across aortic valve. Ejection fraction of 55% to 60% without significant obstructive coronary artery disease. RECOMMENDATION: Findings were discussed with the patient and family. Continued risk factor modification and medical therapy is advised. Patient has been counseled regarding the need to quit smoking. He will be discharged later on today and I will see him on 08/07/2017 at 3:45 p.m. MMODL / IJN: [id number] /
[2018-08-01] MEDS ORDERED: HYDROcodone/APAP 10-325MG 1 EACH TAB PO ONE (14:41)
[2018-08-01 17:16] VITALS: BP 121/62
[2018-08-01] MEDS ORDERED: GABAPENTIN 300 MG CAP PO SCH (18:00)
[2018-08-01] MEDS ORDERED: METOPROLOL SUCCINATE (ER) 25 MG TAB.ER.24H PO SCH (21:00)
[2018-08-01] MEDS ORDERED: HYDROcodone/APAP 10-325MG 1 EACH TAB PO SCH (22:00)
[2018-08-02] MEDS ORDERED: ATORVASTATIN 20 MG TAB PO SCH (09:00)
== END 2018-08-01 17:15 | disposition home or self-care (01) ==
LOC: CATHCVL 09:08
PROVIDERS: ATTEND Internal Medicine Interventional Cardiology
DX: R94.39 Abnormal result of other cardiovascular function study (principal); I20.0 Unstable angina; Z82.49 Family history of ischemic heart disease and other diseases of the circulatory system; F17.210 Nicotine dependence, cigarettes, uncomplicated; L40.8 Other psoriasis; G62.9 Polyneuropathy, unspecified; Z79.899 Other long term (current) drug therapy; Z88.6 Allergy status to analgesic agent; Z91.048 Other nonmedicinal substance allergy status
CPT/HCPCS: 93458; C1769; C1894; J2001; J2250; J1170; J1644; Q9967

== ENCOUNTER → 2020-01-18 | Outpatient (CLI) | payer OTHER ==
--- NOTE | 2020-01-18 10:24 | MR ---
EXAMINATION TYPE: MR lumbar spine wo/w con DATE OF EXAM: 01/18/2020 COMPARISON: Lumbar MRI 10/20/2017 HISTORY: Low back pain TECHNIQUE: Multiplanar, multisequence images of the lumbar spine were acquired utilizing 12 mL intravenous Gadav ist gadolinium contrast. There is been interval posterior lumbar fusion L4-5-1 right-sided laminectomy. There is susceptibilit y artifact due to patient's hardware. There is stable alignment. Loss of disc height signal noted in L4-5. There is no evident spinal stenosis or foraminal encroachment present within the lumbar spine. No abnormal enhancement following contrast administration. L1-L2: Normal disc appearance without desiccation. No herniation, protrusion or disc bulging. No ca nal stenosis is present. Foramina are patent bilaterally. L2-L3: Normal disc appearance without desiccation. No herniation, protrusion or disc bulging. No ca nal stenosis is present. Foramina are patent bilaterally. L3-L4: Stable in appearance. No evident disc herniation. L4-L5: Normal disc appearance without desicc ation. No herniation, protrusion or disc bulging. No canal stenosis is present. Foramina are paten t bilaterally. L5-S1: Stable in appearance, no disc herniation. Lumbar segments are intact. No paraspinal masses are identified. Conus medullaris has a normal appe arance. IMPRESSION: Postop changes. No spinal stenosis or evident recurrent disc herniation.
== END | disposition home or self-care (01) ==
LOC: RADMRIMAIN 06:51
PROVIDERS: ATTEND Orthopaedic Surgery Orthopaedic Surgery of the Spine
DX: M54.5 Low back pain (principal); L40.9 Psoriasis, unspecified; F17.200 Nicotine dependence, unspecified, uncomplicated; Z48.89 Encounter for other specified surgical aftercare; Z98.1 Arthrodesis status; Z68.41 Body mass index [BMI] 40.0-44.9, adult
CPT/HCPCS: 72158; A9585

== ENCOUNTER → 2020-09-16 | Outpatient (CLI) | payer OTHER ==
--- NOTE | 2020-09-16 14:54 | XR ---
EXAMINATION TYPE: XR chest 2V DATE OF EXAM: 09/16/2020 COMPARISON: 11/18/2014 INDICATION: Clinical trial TECHNIQUE: Frontal and lateral views of the chest are obtained. FINDINGS: The heart size is normal. The pulmonary vasculature is normal. The lungs are clear. IMPRESSION: 1. No acute pulmonary process.
== END | disposition home or self-care (01) ==
LOC: RADXRMAIN 14:34
PROVIDERS: ATTEND Dermatology MOHS-Micrographic Surgery
DX: Z00.6 Encounter for examination for normal comparison and control in clinical research program (principal)
CPT/HCPCS: 71046

== ENCOUNTER → 2021-05-27 | Outpatient (CLI) | payer MEDICARE, OTHER ==
[2021-05-27 11:45] VITALS: BP 143/79; PULSE 66; RESP 18; TEMP 98
--- NOTE | 2021-05-27 12:33 | P.CON ---
Consult Note - . Consult date: 05/27/21 Assessment/Plan:: HISTORY OF PRESENT ILLNESS: 46 year old male as a referral from Dr Almonte with a history of lumbar pain secondary to degenerative disc disease presents today for evaluation. 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 It is currently a 6 /10 in intensity, dull & achy in the midsection of his lumbar spine and radiates towards his right hip and right leg. He states he had had a lumbar laminectomy with CAGE but still needs a cane for ambulatory assistance. He presents in the exam room today with a walking cane. Pain is provoked with standing for periods of 15 minutes or more, walking, bending, twisting or lifting. It is alleviated with medications, heating pad use, massage and physical therapy he participated in approximately 1 1/2 years ago, rest and a home based stretching regimen. He would be very happy if he had a procedure that reduced his pain to a 3 /10. Pt is currently participating in a psoriasis medication study which has reduced his plaque psoriasis and recalls being told that the medication(s) reduce his auto immune response to joint inflammation. PMH: Psoriasis, Psoriatic Arthritis, PSH: Exploratory cardiac cath, Lumbar laminectomy with CAGE, Appendectomy, Renal Lithotripsy SH: No ETOH abuse, no illicit drug use FH: Non contributory All: See list Meds: See list REVIEW OF ORGAN SYSTEMS: CONSTITUTIONAL: No fevers or chills. No recent weight loss. HEENT: No visual acuity loss, eye pain, difficulties with hearing. No nosebleeds. No difficulty swallowing. RESPIRATORY: Denies any troubles with breathing or dyspnea on exertion. CARDIOVASCULAR: Denies any chest pain, palpitations, or recent heart attacks. GASTROINTESTINAL: Denies fatty food intolerance. Has change in bowel habits and gas bloat. GENITOURINARY: Denies any blood in urine. Has increased urinary frequency. NEUROLOGICAL: + numbness and tingling along the distal extremities. No seizure disorders or headaches. MUSCULOSKELETAL: + back pain SKIN: No skin cancer. No rash. PSYCHIATRIC: Denies current depression or suicidal thoughts. ENDOCRINE: Denies current thyroid disorders. Denies any blood sugar glucose intolerance. HEME/LYMPHATIC: Denies any lumps and bumps around the neck. History of deep venous thrombosis. ALLERGY/IMMUNOLOGY: No immunoglobulin therapy. No immune deficiencies. BREAST: Denies current breast lumps, pain or nipple discharge. Physical Examinations : Constitutional : Cooperative , not in acute distress . HEENT: Neck supple. No Lymphadenopathy. Normal thyroid size . Eyes no ptosis , no icterus, no photophobia . Hearing intact. Normal oropharynx. No Thrush. Respiratory : Chest clear to auscultations bilaterally. No wheezing. No rhonchi. Cardiovascular : Regular rate and rhythm , S1 / S2. No S3 . No S4. Gastrointestinal : Abdomen soft. No tenderness. Bowel sounds x 4. No organomegaly . Genitourinary : Deferred. Neurologic : Cranial nerve II to XII intact. No focal neurological deficits. Psychiatric : alert & oriented x 3. Matching mood & appropriate affect. Judgment & insight intact. Lymphatic No Lymphadenopathy. Musculoskeletal : Cervical Spine Motor strength in the deltoid and biceps: Normal right side. Normal Left side Motor strength biceps and the wrist extensors: Normal right side . Normal left side Motor strength in the triceps muscle: Normal right side. Normal left side Deep tendon reflexes: Normal at the biceps. Normal at Brachioradialis. Normal at triceps Cervical facet loading test: positive bilaterally Spurling test: positive bilaterally Neck distraction test: positive bilaterally Kezia sign: positive bilaterally Lumbar spine Motor strength lower extremities ,thigh and legs 5/5 Right side , 5/5 Left side Deep tendon reflexes : Normal Knee Jerk. Normal Ankle Jerk Vertebral body tenderness to palpation over L4-L5, L5-S1 Lumbar facet Loading Test: positive right / positive Left Range of motion of the lumbar spine Flexion 30 degrees, extension 10 degrees Straight Leg Raise test: Left/ Right positive at <40 degree Rajan test: positive right / positive left. Severe tenderness over the Sacroiliac joint on the Right / Left sides Gaenslen test: positive right side Seated flexion test: positive bilaterally. IMAGING MRI Lumbar Spine 01/18/2020 : Post operative changes of posterior lumbar fusion of L4-L5-S1. Assessment/ Plan : Recommendation of L4 - L5 LESI. Risks/ benefits of procedure discussed and pt verbalized understanding. May need additional LESI , or may benefit from medial branch blocks. Will evaluate after procedure about the next route to manage pain. Continue current medications Denies aspirin or anticoagulant use I have spent greater than 50 minutes on patient care today. Dr Al-Uriel was available by phone for the evaluation of this patient. The time was used to review the medical records including relevant urine studies and Prescription history (MAPs), review of the available imaging, evaluation and examination of the patient, coordination of care with the medical staff and if applicable referring physicians, as well as creation of the medical record PQRS Measure Charge Sheet Mode of Arrival: Ambulatory - Pain Location Lower Back Non-Pharmacological Interventions: Massage, Stretching, TENS Unit Pharmacological Interventions: PRN Medication PQRS Narrative: Smoking Status Current every day smoker Blood Pressure 143/79 Pain Intensity [Lower Back] 6 Scale Used Numeric (1 - 10) Hx Alcohol Use (MH) Yes: OCCAS Home Medications: Ambulatory Orders Hydrocodone/Acetaminophen [[place] 10-325] 1 each PO TID 07/25/18
== END ==
LOC: PNWHC3 10:35
PROVIDERS: ATTEND Physician Assistant Medical
DX: M51.36 Other intervertebral disc degeneration, lumbar region (principal); M96.1 Postlaminectomy syndrome, not elsewhere classified; L40.9 Psoriasis, unspecified; F17.200 Nicotine dependence, unspecified, uncomplicated; Z88.6 Allergy status to analgesic agent; Z91.030 Bee allergy status
CPT/HCPCS: 99211

== ENCOUNTER 2021-07-30 06:21 | Day surgery (SDC) | payer MEDICARE, OTHER ==
[2021-07-28 11:15] VITALS: BMI 40.7
[2021-07-30] MEDS ORDERED: LIDOCAINE 1% (10MG/ML) FOR IV START INTRADERMA PRN (06:48)
[2021-07-30] MEDS ORDERED: LACTATED RINGERS 1,000 ML IV SCH (06:48)
[2021-07-30 07:01] VITALS: TEMP 98.2
[2021-07-30] MEDS ORDERED: MIDAZOLAM 2 MG/2 ML VIAL ONE (07:33)
[2021-07-30] MEDS ORDERED: fentaNYL (PF) 50 MCG/ML 2 ML AMP ONE ×2 (07:33)
[2021-07-30] MEDS ORDERED: methylPREDNISolone ACETATE 40 MG/ML 1 ML VIAL ONE (07:33)
[2021-07-30] MEDS ORDERED: IOPAMIDOL M200 10 ML VIAL ONE (07:33)
--- NOTE | 2021-07-30 07:52 | P.PCN ---
Date of Procedure: 07/30/21 Procedure(s) Performed: PREOP DIAGNOSIS: 1- Lumbar postlaminectomy syndrome. 2- Lumbar spondylosis . POSTOP DIAGNOSIS:1- Lumbar postlaminectomy syndrome. 2- Lumbar spondylosis. PROCEDURE: 1-Caudal epidural steroid injection with epidurolysis and epidurogram under fluoroscopic guidance. (Fluoroscopy images available in the radiology Department ) 2-caudal epidurogram. ANESTHESIA: Local with 1% lidocaine 3 ml ,and moderate sedation, with Versed 2 mg and fentanyl 200 g. EBL: Minimal. PROCEDURE INDICATION: The patient with post-laminectomy syndrome with low back pain and radiculopathy radiating down in both legs, here for a caudal epidural steroid injection with epidurolysis. PROCEDURE DESCRIPTION: The patient was seen and identified in the preoperative area. Risks, benefits, complications, and alternatives were discussed with the patient. The patient agreed to proceed with the procedure and signed the consent. IV was started, and vital signs were stable. Patient was taken to the OR and time out was completed. The patient was placed in the prone position on procedure table and a pillow was placed under the abdomen to reduce lumbar lordosis. The lumbosacral area was prepped and draped in the usual sterile fashion. Vital signs were closely monitored during the procedure. lateral view and the anterior-posterior plates of the sacrum were identified with infiltration of the area overlying the sacral hiatus with 1% lidocaine .A 17 gauge RK epidural needle was used to advance through the sacral hiatus into the caudal epidural space. Omnipaque 180 dye. 2cc was injected and the position of the needle was verified to be in the midline. A Racz catheter was introduced into the epidural space and was advanced towards the L5-S1 interspace under direct fluoroscopic guidance. Multiple passes were made with the catheter for lysis of epidural adhesions. Depo-Medrol 80 mg with 3ml of preservative free Lidocaine 1% and 5 ml of preservative free normal saline was injected slowly. Additional spread was seen to L4 under fluoroscopy. The needle and the catheter were withdrawn intact. EPIDUROGRAM: Omnipaque 180 mg dye 2 ml was injected with spread of the dye into the caudal epidural space and with spread cutoff at L5 prior to epidurolysis. Post epidurolysis dye 2 ml was injected and spread was seen to L3-4.There was further spread of the solution together with the dye above the L3 COMPLICATIONS: None. DISPOSITION / PLANS: The patient was placed in a supine position and transferred to the recovery area in a stable condition for observation and was discharged from the recovery room after meeting discharge criteria. Home discharge instructions given to the patient by the staff. The patient was reexamined prior to discharge. The patient will schedule a follow up in the clinic in 2-4 weeks.
[2021-07-30] MEDS ORDERED: IV FLUID CONTINUATION 1,000 ML IV ONE ×2 (07:55)
[2021-07-30 07:58] VITALS: RESP 16
--- NOTE | 2021-07-30 08:08 | FL ---
Fluoroscopy History: CAUDAL EPI W/ LYSIS CAUDAL EPI W/ LYSIS . 13 SEC FL TIME. 2 PICS ON SYN
[2021-07-30 08:15] VITALS: BP 124/76; PULSE 68
== END 2021-07-30 08:29 | disposition home or self-care (01) ==
LOC: ORPAIN 06:21
PROVIDERS: ATTEND Specialist
DX: M96.1 Postlaminectomy syndrome, not elsewhere classified (principal); M47.816 Spondylosis without myelopathy or radiculopathy, lumbar region
CPT/HCPCS: 62264; J2250; J1030; J3010; Q9966; C1894; 99152

== ENCOUNTER → 2021-08-17 | Outpatient (CLI) | payer MEDICARE, OTHER ==
--- NOTE | 2021-08-17 09:03 | P.PN ---
Subjective Progress Note Date: 08/17/21 Principal diagnosis: A 46 yr old male with a history of severe and chronic low back pain secondary to lumbar degenerative disc diseases and lumbar spondylosis with facet arthropathy presents today for evaluation status post caudal epidural steroid injection with lysis in June, and caudal epidural steroid injection in July 2021. Patient states he experienced greater pain relief with the first treatment, approximately 75% then the second treatment which was 50% at the time, but is currently experiencing 20% pain relief. Pain level is currently at 8 out of 10 in intensity, sore, constant sensation in the lower aspect of his lumbar spine with radiation of pain down the lower extremities. Pain is provoked by bending, twisting and lifting. Pain is alleviated with medication, OTC ointment, alternating ice and heat, physical therapy years ago which made her worse, home stretching regimen as patient is very physically active, use the cane for ambulation, massage therapy integrated with PT, massage chair use at home, hot showers, repositioning and rest. Interventional pain procedures completed include Caudal MACI with lysis (Jun 2021) & Caudal MACI (Jul 2021) Patient is currently on Ron[place] from Dr Almonte Patient denies any side effects of the medication(s), denies excessive drowsiness or sleepiness, denies suicidal ideation and reports that the current pain medication is helping to control the pain and improve activities of daily living. Patient denies any motor or sensory deficits. Patient denies any fever or night sweats, denies any change in the bowel movements or urination. Physical Examination: -Constitutional: Cooperative. Not in acute distress . -HEENT: Neck is supple. No lymphadenopathy. No thyromegaly. Normal thyroid size. Eyes: No ptosis , no icterus, no photophobia. ENT: No auditory deficits. Normal oropharynx. No Thrush. - Respiratory: Chest clear to auscultations bilaterally. No wheezing. No rhonchi. - Cardiovascular: Regular rate and rhythm. S1 / S2 , no S3 , no S4. - Gastrointestinal: Abdomen soft no tenderness. Bowel sounds positive in all four quadrants. No organomegaly. - Genitourinary: Deferred. - Neurologic: Cranial nerve II to XII intact. No focal neurological de ficits. - Psychatric: Alert & oriented x 3. Matching mood & appropriate affect. Judgment and insight intact. - Lymphatic: No Lymphadenopathy. - Musculoskeletal: Cervical spine: Muscle bulk/ tone/ strength in the bilateral upper extremities normal. Facet loading test cervical area positive. Lumbar spine: Motor bulk/ tone/ strength lower extremities , thigh and legs : 5/5 Deep tendon reflexes : Normal Knee Jerk. Normal Ankle Jerk . Vertebral body tenderness to palpation over Lumbar Facet Loading Test positive Straight Leg Raise: positive at 30 degrees right side/ left side Gaenslen's Test positive Sacral spine : Severe tenderness over the Sacroiliac joint: right side / left side Range of motion: Flexion of the lumbar spine <60 degrees Range of motion: Extension of the lumbar spine <20 degrees Gaenslen's Test positive Rajan test: positive right side / left side Assessment and plan: Chronic low back pain secondary to lumbar degenerative disc disease , lumbar spondylosis with facet arthropathy without myelopathy Recommendation of Caudal MACI #3. Risks, benefits of procedure discussed and patient verbalized understanding. Denies anticoagulant use. Denies medical history of diabetes. All patient questions answered MAPS reviewed and it was appropriate. I have spent 31 minutes on patient care today. Dr Aragon was available by phone for the evaluation of this patient. The time was used to review the medical records including relevant urine studies and Prescription history (MAPs), review of the available imaging, evaluation and examination of the patient, coordination of care with the medical staff and if applicable referring physicians, as well as creation of the medical record PQRS Measure Charge Sheet - Pain Location Lower Back Non-Pharmacological Interventions: Massage, Stretching, TENS Unit Pharmacological Interventions: PRN Medication PQRS Narrative: Smoking Status Current every day smoker Pain Intensity [Lower Back] 7 Scale Used Numeric (1 - 10) Hx Alcohol Use (MH) Yes: OCCAS Home Medications: Ambulatory Orders Hydrocodone/Acetaminophen [[place] 10-325] 1 each PO TID 07/25/18 Clinical Study Inj 07/28/21
[2021-08-17 09:23] VITALS: BP 143/97; PULSE 69; RESP 18; TEMP 98.1
== END ==
LOC: PNWHC3 08:35
PROVIDERS: ATTEND Specialist
DX: M51.36 Other intervertebral disc degeneration, lumbar region (principal); M47.816 Spondylosis without myelopathy or radiculopathy, lumbar region; G89.29 Other chronic pain; F17.200 Nicotine dependence, unspecified, uncomplicated; Z88.6 Allergy status to analgesic agent; Z91.030 Bee allergy status
CPT/HCPCS: 99211

== ENCOUNTER → 2021-09-08 | Day surgery (SDC) | payer MEDICARE, OTHER ==
[2021-09-04 15:08] VITALS: BMI 40.7
[~2021-09-08] MED LIST changes: -ALPRAZolam 0.25 MG TAB PO PRN; -ALPRAZolam 0.5 MG TAB PO PRN; -ASPIRIN 325 MG TAB PO ONE; -ATORVASTATIN 80 MG TAB PO ONE; +IOPAMIDOL M200 10 ML VIAL ONE; +IV FLUID CONTINUATION 1,000 ML IV ONE; +LACTATED RINGERS 1,000 ML IV SCH; +LIDOCAINE 1% (10MG/ML) FOR IV START INTRADERMA PRN; +MIDAZOLAM 2 MG/2 ML VIAL ONE; -NITROGLYCERIN SL TABS 0.4 MG TAB SUBLINGUAL PRN; -SODIUM CHLORIDE 0.9% 1,000 ML in EMPTY BAG 1 BAG IV ONE; +TRIAMCINOLONE ACETONIDE 40 MG/ML 1 ML VIAL ONE; +fentaNYL (PF) 50 MCG/ML 2 ML AMP ONE
[2021-09-08 07:11] VITALS: RESP 16; TEMP 97.4
--- NOTE | 2021-09-08 08:09 | P.PCN ---
Date of Procedure: 09/08/21 Description of Procedure: PREOP DIAGNOSIS: Lumbar postlaminectomy syndrome, and lumbar radiculopathy POSTOP DIAGNOSIS: Lumbar postlaminectomy syndrome, and lumbar radiculopathy PROCEDURE: Caudal epidural steroid injection with epidurolysis and epidurogram under fluoroscopic guidance #3 ANESTHESIA: Local with 1% lidocaine; IV sedation with Versed and fentanyl Surgeon: Sundar Foster EBL: None Specimens removed: None Fluoroscopic image: saved to electronic medical records PROCEDURE INDICATION: The patient with post-laminectomy syndrome with low back pain and radiculopathy radiating down in both legs, here for a caudal epidural steroid injection with epidurolysis. With the previous injection patient had more than 70-80% pain relief in his lumbar back area, and pain radiating to lower extremities for 3-4 weeks duration. PROCEDURE DESCRIPTION: The patient was seen and identified in the preoperative area. Risks, benefits, complications, and alternatives were discussed with the patient. The patient agreed to proceed with the procedure and signed the consent. IV was started, and vital signs were stable. Patient was taken to the OR and time out was completed. The patient was placed in the prone position on procedure table and a pillow was placed under the abdomen to reduce lumbar lordosis. The lumbosacral area was prepped and draped in the usual sterile fashion. Vital signs were closely monitored during the procedure. Lateral view and the anterior-posterior plates of the sacrum were identified with infiltration of the area overlying the sacral hiatus with 1% lidocaine .A 17 gauge RK epidural needle was used to advance through the sacral hiatus into the caudal epidural space. Isovue contrast 2 mL was injected and the position of the needle was verified to be in the midline. A Racz catheter was introduced into the epidural space and was advanced towards the L5-S1 interspace under direct fluoroscopic guidance. Multiple passes were made with the catheter for lysis of epidural adhesions. Kenalog 40mg with 10 ml of preservative free normal saline was injected slowly. Additional spread was seen to L4 under fluoroscopy. The needle and the catheter were withdrawn intact. EPIDUROGRAM: Isovue dye 1 ml was injected with spread of the dye into the caudal epidural space and with spread cutoff at S1 prior to epidurolysis. Post epidurolysis dye 1 ml was injected and spread was seen to L4. COMPLICATIONS: None. DISPOSITION / PLANS: The patient was placed in a supine position and transferred to the recovery area in a stable condition for observation and was discharged from the recovery room after meeting discharge criteria. Home discharge instru ctions given to the patient by the staff. The patient was reexamined prior to discharge. The patient will schedule a follow up in the clinic in 4 weeks.
[2021-09-08 08:26] VITALS: BP 115/78; PULSE 80
--- NOTE | 2021-09-09 14:43 | FL ---
EXAMINATION TYPE: FL guided pain mgmt statistic DATE OF EXAM: 09/09/2021 CLINICAL HISTORY: Pelvic pain. TECHNIQUE: Fluoroscopy. COMPARISON: None. FINDINGS: Fluoroscopic guidance was provided during pain relief procedure performed by Dr. Srinivasan . A total of 10 seconds of fluoroscopic time was utilized during the procedure and 3 spot images are acquired. Images acquired shows needle localization at the level of the posterior sacrum. IMPRESSION: As Above.
== END | disposition home or self-care (01) ==
LOC: ORPAIN 06:50
DX: M96.1 Postlaminectomy syndrome, not elsewhere classified (principal)
CPT/HCPCS: 62323; J2250; J3301; J3010; Q9966; 99152

== ENCOUNTER → 2021-10-05 | Outpatient (CLI) | payer MEDICARE, OTHER ==
--- NOTE | 2021-10-05 09:44 | P.PN ---
Subjective Progress Note Date: 10/05/21 This is a 46-year-old gentleman with history of chronic lower back pain with radiation to the right leg due to postlaminectomy pain syndrome. The patient had 2 surgeries on the lower back first one was laminectomy and the second one was a fusion. Recently he had caudal epidural steroid injection which helped his right leg pain significantly however he still has lower back pain across his lower back with radiation to the sides and goes about 2 levels above his back surgery scars. Patient denies new-onset weakness, bowel/bladder incontinence, or any other signs or symptoms of cauda equina syndrome. There are no signs of acute intoxication, and no indications of medication diversion or overuse. In addition to above, 13-point review of systems is also negative for chest pain, shortness of breath, changes in vision, changes in hearing, new onset weakness, abdominal pain, diarrhea, extreme fatigue, malaise, fever, skin changes, homicidal or suicidal ideation, or bowel or bladder incontinence. Vital Signs: Reviewed in EMR Gen: AAOx3, NAD HEENT: PERRLA,hearing grossly normal Pulm: resp unlabored Neck: supple, trachea midline Neuro exam of the lower extremities: Absent right knee and right ankle reflexes, the rest of the neuro exam is normal and symmetrical Straight leg raising test: Negative bilaterally Kelvin's test: Range of motion of the lumbar spine: Facet loading test: Positive on the lumbar area Tenderness in the paravertebral musculature: Positive on the lumbar paravertebral musculature Neuro: CN II-XII grossly intact, Imaging: Reviewed in EMR/chart Assessment: Lumbar postlaminectomy pain syndrome Lumbar spondylosis without myelopathy Plan: 1. Explanation: When patients on opioids, opioid and psychological risk scores were reviewed. Diagnoses, prognoses, and multiple treatment options including but not limited to physical therapy, interventional therapies, adjuvant medical therapies, narcotic medication therapies, and surgery were discussed with the patient and all questions were answered to the patient's satisfaction. 2. Opioid agreement:When patients are prescribed opoids through our clinic, opioid agreement is signed with the patient and the patient is warned not to use opioids while driving or before driving and not to combine opioids with benzodiazepines or alcohol. 3. Counseling: When patient is smoking or obese, the patient was counseled extensively on SMOKING CESSATION, BODY MASS INDEX, EXERCISE. Specifically, the patient was instructed regarding the importance of smoking cessation, obesity, and exercise in the context of both chronic pain and overall health. 4. Procedures: Schedule for a diagnostic lumbar medial branch block for the levels above the fusion most likely L2-3 and L3 4 bilaterally 5. Consultations: None 6. Investigations: None 7. Medications: None prescribed today 8. Disposition: Proceed with the above-mentioned procedure as soon as possible 9. Maps were reviewed and were appropriate.
[2021-10-05 09:57] VITALS: BP 129/74; PULSE 68; RESP 18; TEMP 98.1
== END ==
LOC: PNWHC3 09:12
PROVIDERS: ATTEND Anesthesiology
DX: M47.816 Spondylosis without myelopathy or radiculopathy, lumbar region (principal); M96.1 Postlaminectomy syndrome, not elsewhere classified; Z88.6 Allergy status to analgesic agent; Z91.030 Bee allergy status; F17.200 Nicotine dependence, unspecified, uncomplicated
CPT/HCPCS: 99211

== ENCOUNTER 2021-11-20 06:25 | Day surgery (SDC) | payer MEDICARE, OTHER ==
[2021-11-18 10:12] VITALS: BMI 40.7
[~2021-11-20 06:25] MED LIST changes: -IOPAMIDOL M200 10 ML VIAL ONE; -IV FLUID CONTINUATION 1,000 ML IV ONE; -LIDOCAINE 1% (10MG/ML) FOR IV START INTRADERMA PRN; -MIDAZOLAM 2 MG/2 ML VIAL ONE; -TRIAMCINOLONE ACETONIDE 40 MG/ML 1 ML VIAL ONE; -fentaNYL (PF) 50 MCG/ML 2 ML AMP ONE
[2021-11-20 06:55] VITALS: RESP 16; TEMP 97.8
--- NOTE | 2021-11-20 07:27 | P.PCN ---
Date of Procedure: 11/20/21 Procedure(s) Performed: Bilateral lumbar medial branch block at L2-3 and L3-L4 Description of Procedure: Procedure: BILATERAL L2-L3, L3-L4 Diagnosis: Lumbar spondylosis without myelopathy Anesthesia: Local and Versed Imaging: Fluoroscopy was used, images where saved to the medical record The patient was seen and examined in the [facility]. Procedure risks and benefits were fully reviewed with the patient. The patient understands this is a diagnostic if local only is used, as will be the case today. The goal of the procedure is to inject medication onto the medial branch or small nerves that i nnervate the facet joints. In this way, we can hopefully identify which of these joints, if any, may be contributing to their pain. Informed consent for procedure was obtained. The patient was taken into the office fluoroscopy procedure room and placed prone on the table. A pillow was placed under the abdomen to reduce lumbar lordosis. Vital signs were closely monitored during the procedure. The skin over the area was prepped with Betadine X 3 and draped in usual sterile manner. Sterile technique was observed throughout procedure. Under biplanar fluoroscopic guidance, the target injection area of the L1, L2, L3, L4, Sacral Ala were targeted. A 25 gauge 3 1/2 inch spinal needle was then placed at the most medial and superior aspect of the transverse process near the "eye of the Eric dog". Aspiration for blood was negative. 1 cc of 0.5% Ropivacaine was injected into the targeted areas separately. Herrin were withdrawn intact. No complications were noted during the procedure. The patient tolerated the procedure well. The patient was placed in supine position and transferred to the recovery area for observation and remained stable until discharged home. Home discharge instructions were given to the patient by the staff. The patient will schedule a follow up as directed.
[2021-11-20] MEDS ORDERED: ROPIVACAINE 5 MG/ML 20 ML AMPULE ONE (07:35)
[2021-11-20] MEDS ORDERED: MIDAZOLAM 2 MG/2 ML VIAL ONE (07:36)
[2021-11-20] MEDS ORDERED: LACTATED RINGERS 1,000 ML IV ONE (07:58)
[2021-11-20] MEDS ORDERED: IV FLUID CONTINUATION 900 ML IV ONE (07:58)
--- NOTE | 2021-11-20 08:15 | FL ---
EXAMINATION TYPE: FL guided pain mgmt statistic DATE OF EXAM: 11/20/2021 CLINICAL HISTORY: Low back pain. TECHNIQUE: Fluoroscopy. COMPARISON: None. FINDINGS: Fluoroscopic guidance was provided during pain relief procedure performed by Dr. Ramirez . A total of 10 seconds of fluoroscopic time was utilized during the procedure and 6 spot images are acquired. Images acquired shows needle localization at several levels in the lumbar spine. IMPRESSION: As Above.
[2021-11-20 08:32] VITALS: BP 110/70; PULSE 58
== END 2021-11-20 08:31 ==
LOC: ORPAIN 06:25
PROVIDERS: ATTEND Hospitalist
DX: M47.816 Spondylosis without myelopathy or radiculopathy, lumbar region (principal); I10 Essential (primary) hypertension; M06.9 Rheumatoid arthritis, unspecified; F17.200 Nicotine dependence, unspecified, uncomplicated; M41.9 Scoliosis, unspecified; Z88.6 Allergy status to analgesic agent; Z91.030 Bee allergy status; Z79.899 Other long term (current) drug therapy; Z82.49 Family history of ischemic heart disease and other diseases of the circulatory system; Z80.9 Family history of malignant neoplasm, unspecified
CPT/HCPCS: 64493; 64494; J2250; J2795

== ENCOUNTER → 2021-12-03 | Outpatient (CLI) | payer MEDICARE, OTHER ==
[2021-12-03 14:35] VITALS: BP 111/77; PULSE 90; RESP 18
--- NOTE | 2021-12-03 14:41 | P.PAINPG ---
PQRS Measure Charge Sheet Comment: A 46 yr old male with a history of severe and chronic low back pain secondary to lumbar degenerative disc diseases and lumbar spondylosis with facet arthropathy presents today for evaluation s/p FB of the MB BL L2-L3, L3-L4 #1. He states he experienced 90% pain relief x 12 hrs s/p procedure. Pain level is c urrently at 7/10 in intensity, constant, lower aspect of lumbar spine, dull/ achy in character w sharp/ shooting towards top of glutes. Pain is provoked by TTP, PT years ago which provoked the pain, and weight bearing activity. Pain is alleviated with heat, ice, medications ([place] from Dr Almonte), repositioning and rest. Interventional pain procedures completed include Caudal MACI w Lysis, LESI L4-L5, BL FB/MB L2-L3, L3-L4 x 1 Patient is currently on [place] Patient denies any side effects of the medication(s), denies excessive drowsiness or sleepiness, denies suicidal ideation and reports that the current pain medication is helping to control the pain and improve activities of daily living. Patient denies any motor or sensory deficits. Patient denies any fever or night sweats, denies any change in the bowel movements or urination. Physical Examination: -Constitutional: Cooperative. Not in acute distress . - Neurologic: Cranial nerve II to XII intact. No focal neurological deficits. - Psychatric: Alert & oriented x 3. Matching mood & appropriate affect. Judgment and insight intact. - Musculoskeletal: Cervical spine: Muscle bulk/ tone/ strength in the bilateral upper extremities normal Vertebral body tenderness to palpation over Spurling test positive Distraction test positive Facet loading test positive Thoracic spine Muscle bulk / tone/ strength in the bilateral paraspinal muscles normal Vertebral body tender to palpation over Facet loading test positive Lumbar spine: Motor bulk/ tone/ strength lower extremities , thigh and legs : 5/5 Deep tendon reflexes : Normal Knee Jerk. Normal Ankle Jerk . Vertebral body tenderness to palpation over Lumbar Facet Loading Test positive over BL L2-L3, L3-L4 Straight Leg Raise: positive at 30 degrees right side/ left side Gaenslen's Test positive Sacral spine : Severe tenderness over the Sacroiliac joint: right side / left side Range of motion: Flexion of the lumbar spine <60 degrees Range of motion: Extension of the lumbar spine <20 degrees Gaenslen's Test positive Kelvin's Test positive Rajan test: positive right side / left side Thigh Thrust Test Sacral Thrust Test Assessment and plan: Chronic low back pain secondary to lumbar degenerative disc disease , lumbar spondylosis with facet arthropathy without myelopathy Recommendation of BL facet block of the medial branches L2-L3, L3-L4 #2. May need a series of injections, up until RFA, for optimal pain relief. Risks, benefits of procedure discussed and pt verbalized understanding. Denies anticoagulant use or medical history of diabetes. All patient questions answered MAPS reviewed and it was appropriate. I have spent less than 30 minutes on patient care today. Dr Aragon was available by phone for the evaluation of this patient. The time was used to review the medical records including relevant urine studies and Prescription history (MAPs), review of the available imaging, evaluation and examination of the patient, coordination of care with the medical staff and if applicable referring physicians, as well as creation of the medical record PQRS Narrative: Smoking Status Current every day smoker Hx Alcohol Use (MH) Yes: OCCAS Home Medications: Ambulatory Orders Hydrocodone/Acetaminophen [[place] 10-325] 1 each PO TID 07/25/18 Clinical Study Inj 1 dose DIRECTED 07/28/21 Controlled Substance Measures - Controlled Substance Measures Is patient prescribed a controlled substance at discharge?: No
== END ==
LOC: PNWHC3 13:45
PROVIDERS: ATTEND Specialist
DX: M51.36 Other intervertebral disc degeneration, lumbar region (principal); M47.816 Spondylosis without myelopathy or radiculopathy, lumbar region; G89.29 Other chronic pain; F17.200 Nicotine dependence, unspecified, uncomplicated; Z88.6 Allergy status to analgesic agent; Z91.030 Bee allergy status
CPT/HCPCS: 99211

== ENCOUNTER 2022-01-15 07:35 | Day surgery (SDC) | payer MEDICARE, OTHER ==
[2022-01-15] MEDS ORDERED: LACTATED RINGERS 1,000 ML IV ONE ×2 (07:55→07:56)
[2022-01-15] MEDS ORDERED: LIDOCAINE 1% (10MG/ML) FOR IV START INTRADERMA PRN (07:56)
[2022-01-15] MEDS ORDERED: LACTATED RINGERS 1,000 ML IV SCH (07:56)
[2022-01-15 08:01] VITALS: TEMP 98.3
[2022-01-15] MEDS ORDERED: MIDAZOLAM 2 MG/2 ML VIAL ONE (08:26)
[2022-01-15] MEDS ORDERED: ROPIVACAINE 5 MG/ML 20 ML AMPULE ONE (08:26)
[2022-01-15] MEDS ORDERED: methylPREDNISolone ACETATE 40 MG/ML 1 ML VIAL ONE (08:26)
[2022-01-15] MEDS ORDERED: fentaNYL (PF) 50 MCG/ML 2 ML AMP ONE (08:26)
--- NOTE | 2022-01-15 08:48 | P.PCN ---
Date of Procedure: 01/15/22 Procedure(s) Performed: PREOPERATIVE DIAGNOSIS : 1- Lumbar spondylosis with Facet Arthropathy without myelopathy . 2- Lumber degenerative disc disease POSTOPERATIVE DIAGNOSIS: 1- Lumbar spondylosis with Facet Arthropathy without myelopathy . 2- Lumber degenerative disc disease PROCEDURE: Diagnostic bilateral L1 , L2 , and L3 medial branch block under fluoroscopy guidance(fluoroscopy images available in the radiology Department ) ( To target the facet joint between Bilateral L2-3 , and L3-4 )# 2nd ANESTHESIA:, Monitored anesthesia care as per anesthesia department. EBL: Minimal COMPLICATION: None PROCEDURE INDICATION: Chronic low back pain secondary to Facet arthropathy unresponsive to conservative treatment. PROCEDURE DESCRIPTION: the patient was seen and identified in the preop holding area , risks and benefits and possible complications of the procedure and alternative were discussed with the patient, and the patient agreed to proceed with the procedure and signed the consent and vital signs monitored during the procedure and fluoroscopy was used to maximize the benefit and accuracy of the needle placement, and sedation was given to decrease patient anxiety, patient was taken to the procedure room and placed in prone position vital signs monitored in the back prepped with chlorhexidine X3 then under strict sterile technique using a right oblique fluoroscopy ,the junction of the transverse process and the superior articulating process of the right L1, L2 , and L3 vertebra which corresponding to the fluoroscopy image of the eye of the Eric dog on the block side for the medial branches and subsequently , after local infiltration of skin and subcu tissuies with Ropivacaine 0.5 % , one mL at each level ,then 22-gauge Quincke-type needles , 3 needle was used , each one of them placed at the junction of the base of the transverse process and the superior articular process at the appropriate level, and the needle was advanced until the periosteum contacted, needle placement confirmed with AP oblique and lateral view and after appropriate needle placement confirmed, and after negative aspiration for heme and CSF and there was no paresthesia 1-1/2 mL of Ropivacaine 0.5% mixed with 20 mg Depo-Medrol , then half mL injected at each level after negative aspiration the needle subsequently removed and the same procedure repeated for the left side at left side at L1 , L2 and L3 levels. At the end of the procedure and the needles removed and a bandage applied after the skin was cleaned the cleaning solution patient taken to recovery room in stable condition and monitors in the recovery room for 20-30 minutes and discharged home in stable condition after discharge criteria met and patient will follow up with the pain clinic in 2-4 weeks
[2022-01-15] MEDS ORDERED: IV FLUID CONTINUATION 600 ML IV ONE (08:49)
[2022-01-15 08:52] VITALS: RESP 16
[2022-01-15 09:16] VITALS: BP 108/69; PULSE 87
--- NOTE | 2022-01-15 14:58 | FL ---
Fluoroscopy INDICATION: Pain FINDINGS: Fluoroscopy time: 12 seconds. Images obtained: 4. IMPRESSIONS: 1. Documentation of fluoroscopy.
== END 2022-01-15 09:40 | disposition home or self-care (01) ==
LOC: ORPAIN 07:35
PROVIDERS: ATTEND Specialist
DX: M47.816 Spondylosis without myelopathy or radiculopathy, lumbar region (principal); M51.36 Other intervertebral disc degeneration, lumbar region; L40.9 Psoriasis, unspecified; Z68.41 Body mass index [BMI] 40.0-44.9, adult; Z88.6 Allergy status to analgesic agent; Z91.030 Bee allergy status; Z79.891 Long term (current) use of opiate analgesic
CPT/HCPCS: 64493; 64494 ×2; J2250; J1030; J3010; J2795

== ENCOUNTER → 2022-02-04 | Outpatient (CLI) | payer MEDICARE, OTHER ==
[2022-02-04 09:44] VITALS: BP 142/79; PULSE 67; RESP 18; TEMP 98.1
--- NOTE | 2022-02-04 09:52 | P.PAINPG ---
PQRS Measure Charge Sheet Comment: A 46 yr old male with a history of severe and chronic low back pain secondary to lumbar degenerative disc diseases and lumbar spondylosis with facet arthropathy without myelopathy presents today for evaluation s/p MBB BL L2-L3, L3-L4 #1. Pt states he experienced 100% pain relief x 1 day s/p procedure. Pain level is currently at 7/10 in intensity, constant, localized in the mid lumbar spine, stabbing in character w shooting towards BL hips, R>L. Pain is provoked by sitting/standing/walking for periods of 30 min or more. Pain is alleviated with PT years ago at [place], [place] whom told him they could be worsening him, use of a cane for ambulation, meds ([place] from Dr Almonte), heat, ice, hot showers, herb al topical from his [facility] repositioning and rest. Interventional pain procedures completed include BL MBB L1-L3 x1. Patient is currently on [place] from Dr. Almonte Patient denies any side effects of the medication(s), denies excessive drowsiness or sleepiness, denies suicidal ideation and reports that the current pain medication is helping to control the pain and improve activities of daily living. Patient denies any motor or sensory deficits. Patient denies any fever or night sweats, denies any change in the bowel movements or urination. Physical Examination: -Constitutional: Cooperative. Not in acute distress . - Neurologic: Cranial nerve II to XII intact. No focal neurological deficits. - Psychatric: Alert & oriented x 3. Matching mood & appropriate affect. Judgment and insight intact. - Musculoskeletal: Cervical spine: Muscle bulk/ tone/ strength in the bilateral upper extremities normal Vertebral body tenderness to palpation over Spurling test positive Distraction test positive Facet loading test positive Thoracic spine Muscle bulk / tone/ strength in the bilateral paraspinal muscles normal Vertebral body tender to palpation over Facet loading test positive Lumbar spine: Motor bulk/ tone/ strength lower extremities , thigh and legs : 5/5 Deep tendon reflexes : Normal Knee Jerk. Normal Ankle Jerk . Vertebral body tenderness to palpation over Lumbar Facet Loading Test positive w jump reflex over BL L2-L3, L3-L4 Straight Leg Raise: positive at 30 degrees right side/ left side Gaenslen's Test positive Sacral spine : Severe tenderness over the Sacroiliac joint: right side / left side Range of motion: Flexion of the lumbar spine <60 degrees Range of motion: Extension of the lumbar spine <20 degrees Gaenslen's Test positive Kelvin's Test positive Rajan test: positive right side / left side Thigh Thrust Test Sacral Thrust Test Assessment and plan: Chronic low back pain secondary to lumbar degenerative disc disease , lumbar spondylosis with facet arthropathy without myelopathy Recommendatin of BL MBB L2-L3, L3-L4 #2. May need a series of injections, up until RFA, for optimal pain relief. Risks, benefits of procedure discussed and pt verbalized understanding. Denies anticoagulant use or medical history of diabetes. All patient questions answered MAPS reviewed and it was appropriate. I have spent less than 30 minutes on patient care today. Dr Aragon was available by phone for the evaluation of this patient. The time was used to review the medical records including relevant urine studies and Prescription history (MAPs), review of the available imaging, evaluation and examination of the patient, coordination of care with the medical staff and if applicable referring physicians, as well as creation of the medical record PQRS Narrative: Smoking Status Current every day smoker Hx Alcohol Use (MH) Yes: OCCAS Home Medications: Ambulatory Orders Hydrocodone/Acetaminophen [[place] 10-325] 1 each PO TID 07/25/18 Controlled Substance Measures - Controlled Substance Measures Is patient prescribed a controlled substance at discharge?: No
== END ==
LOC: PNWHC3 08:59
PROVIDERS: ATTEND Specialist
DX: M51.36 Other intervertebral disc degeneration, lumbar region (principal); M47.816 Spondylosis without myelopathy or radiculopathy, lumbar region; G89.29 Other chronic pain; F17.200 Nicotine dependence, unspecified, uncomplicated; Z88.6 Allergy status to analgesic agent; Z91.030 Bee allergy status
CPT/HCPCS: 99211

== ENCOUNTER 2022-02-26 11:27 | Day surgery (SDC) | payer MEDICARE, OTHER ==
[2022-02-26 12:08] VITALS: TEMP 98.4
[2022-02-26] MEDS ORDERED: fentaNYL (PF) 50 MCG/ML 2 ML AMP ONE (12:15)
[2022-02-26] MEDS ORDERED: MIDAZOLAM 2 MG/2 ML VIAL ONE (12:15)
[2022-02-26] MEDS ORDERED: ROPIVACAINE 5 MG/ML 20 ML AMPULE ONE (12:15)
--- NOTE | 2022-02-26 12:15 | P.PCN ---
Date of Procedure: 02/26/22 Description of Procedure: PREOPERATIVE DIAGNOSIS: Lumbar Facet Arthropathy without myelopathy POSTOPERATIVE DIAGNOSIS: Same PROCEDURES: Bilateral Radiofrequency thermocoagulation of L2, L3, L4 medial branches, with fluoroscopic guidance ANESTHESIA: Per anesthesia records Imaging: Fluoroscopy was used, images where saved to the medical record PROCEDURE INDICATION: The patient with low back pain secondary to lumbar facet arthropathy who had more than 50% relief of pain with previous diagnostic lumbar medial branch block with local anesthetic. PROCEDURE DESCRIPTION / TECHNIQUE: The patient was seen and identified in the preoperative area. Risks, benefits, complications, including but not limited to risk of infection, bleeding, allergic reactions to the medications and no complete pain relief, and alternatives were discussed with the patient, the patient agreed to proceed with the procedure and signed the consent. IV was started. Vital signs remained stable throughout the procedure. Patient was taken to the OR and time out was completed. The patient was placed in the prone position on the procedure table. The lumber area was prepped and draped in the usual sterile fashion. Vital signs were closely monitored during the procedure. IV sedation was used during the procedure to decrease patient anxiety. Using AP and then oblique fluoroscopy, the eye of the Eric dog corresponding to the connection between the superior and transverse articular processes of L2, L3, L4 were identified, marked, and localized with 1% lidocaine. Subsequently, a 20 [id number] radiofrequency cannula with a 10-mm active tip was advanced guided by fluoroscopy to the junction of the pedicle and transverse process of each identified level. Each site then underwent sensory testing at 50 Hz and 0 to 1 volt and motor testing at 2.5 Hz and 0 to 3 volt with local stimulation, no radicular symptoms sensed by the patient and no obvious motor stimulation noted. Thereafter the tested sites underwent radiofrequency thermocoagulation at 80 degrees celsius for 90 seconds after injecting 1 ml of PF lidocaine 1%. Then after the thermocoagulation was done, 1 ml of the block solution containing ropivaciane 0.5% was injected at the lesioned sites after negative aspiration of CSF and blood and with no paresthesias. Cannulas were retracted. At the end of the procedure, the skin was cleansed and bandages were applied. COMPLICATIONS: No acute complications. DISPOSITION / PLANS: The patient was placed in a supine position and transf erred to the recovery area in a stable condition for observation and was discharged from the recovery room after meeting discharge criteria. Home discharge instructions given to the patient by the staff. The patient was reexamined prior to discharge. Patient will follow up as directed.
[2022-02-26] MEDS ORDERED: IV FLUID CONTINUATION 1,000 ML IV ONE (12:45)
--- NOTE | 2022-02-26 12:51 | FL ---
Fluoroscopy INDICATION: Pain FINDINGS: Fluoroscopy time: 10 seconds. Images obtained: 5. IMPRESSIONS: 1. Documentation of fluoroscopy.
[2022-02-26 12:55] VITALS: RESP 16
[2022-02-26 13:18] VITALS: BP 115/74; PULSE 73
== END 2022-02-26 13:24 | disposition home or self-care (01) ==
LOC: ORPAIN 11:27
PROVIDERS: ATTEND Hospitalist
DX: M47.816 Spondylosis without myelopathy or radiculopathy, lumbar region (principal); I10 Essential (primary) hypertension; Z87.891 Personal history of nicotine dependence; L40.9 Psoriasis, unspecified; Z79.891 Long term (current) use of opiate analgesic; Z79.899 Other long term (current) drug therapy; Z88.6 Allergy status to analgesic agent
CPT/HCPCS: 64635; 64636; J2250; J3010; J2795

== ENCOUNTER → 2022-03-15 | Outpatient (CLI) | payer MEDICARE, OTHER ==
[2022-03-15 08:42] VITALS: BP 134/84; PULSE 72; RESP 18; TEMP 98.4
--- NOTE | 2022-03-15 14:41 | P.PAINPG ---
PQRS Measure Charge Sheet Comment: A 46 yr old male w at side with a history of severe and chronic low back pain secondary to lumbar degenerative disc diseases and lumbar spondylosis with facet arthropathy without myelopathy presents today for evaluation s/p BL RFA L2-L3, L3-L4. Pt states he experienced 70 % pain relief s/p procedure. Pain level is currently at 4 /10 in intensity, constant, localized in the lumbar spine, sore in charcter w shooting towards . Pain is provoked as high as 9/10 by overactivity by evening. Pain is alleviated with PT x 12 wks in 2019, massage integrated w PT, use of a cane for ambulation, heat, ice, medications, topicals, sitting on a massage chair and rest. Interventional pain procedures completed include BL RFA L2-L4, Caudal MACI w Lysis Patient is currently on [place] Patient denies any side effects of the medication(s), denies excessive drowsiness or sleepiness, denies suicidal ideation and reports that the current pain medication is helping to control the pain and improve activities of daily living. Patient denies any motor or sensory deficits. Patient denies any fever or night sweats, denies any change in the bowel movements or urination. Physical Examination: -Constitutional: Cooperative. Not in acute distress . - Neurologic: Cranial nerve II to XII intact. No focal neurological defic its. - Psychatric: Alert & oriented x 3. Matching mood & appropriate affect. Judgment and insight intact. - Musculoskeletal: Cervical spine: Muscle bulk/ tone/ strength in the bilateral upper extremities normal Vertebral body tenderness to palpation over Spurling test positive Distraction test positive Facet loading test positive Thoracic spine Muscle bulk / tone/ strength in the bilateral paraspinal muscles normal Vertebral body tender to palpation over Facet loading test positive Lumbar spine: Motor bulk/ tone/ strength lower extremities , thigh and legs : 5/5 Deep tendon reflexes : Normal Knee Jerk. Normal Ankle Jerk . Vertebral body tenderness to palpation over L3 Lumbar Facet Loading Test positive Straight Leg Raise: positive at 30 degrees right side/ left side Gaenslen's Test positive Sacral spine : Severe tenderness over the Sacroiliac joint: right side / left side Range of motion: Flexion of the lumbar spine <60 degrees Range of motion: Extension of the lumbar spine <20 degrees Gaenslen's Test positive Kelvin's Test positive Rajan test: positive right side / left side Thigh Thrust Test Sacral Thrust Test Assessment and plan: Chronic low back pain secondary to lumbar degenerative disc disease , lumbar spondylosis with facet arthropathy without myelopathy Recommendation of MACI L3-L4. May need a series of injections, up to 3 within a 6 mo period, for optimal pain relief. Risks, benefits of procedure discussed and pt verbalized understanding. Denies anticoagulant use or medical history of diabetes. All patient questions answered I have spent less than 30 minutes on patient care today. Dr Aragon was available by phone for the evaluation of this patient. The time was used to review the medical records including relevant urine studies and Prescription history (MAPs), review of the available imaging, evaluation and examination of the patient, coordination of care with the medical staff and if applicable referring physicians, as well as creation of the medical record PQRS Narrative: Smoking Status Current every day smoker Hx Alcohol Use (MH) Yes: OCCAS Home Medications: Ambulatory Orders Hydrocodone/Acetaminophen [[place] 10-325] 1 each PO TID 07/25/18 Ustekinumab [Stelara] 1 injection SQ DIRECTED 02/25/22 Controlled Substance Measures - Controlled Substance Measures Is patient prescribed a controlled substance at discharge?: No
== END ==
LOC: PNWHC3 08:14
PROVIDERS: ATTEND Specialist
DX: M47.816 Spondylosis without myelopathy or radiculopathy, lumbar region (principal); G89.29 Other chronic pain; M51.36 Other intervertebral disc degeneration, lumbar region; Z88.6 Allergy status to analgesic agent; F17.200 Nicotine dependence, unspecified, uncomplicated; Z91.038 Other insect allergy status
CPT/HCPCS: 99211

== ENCOUNTER 2022-04-20 06:42 | Day surgery (SDC) | payer MEDICARE, OTHER ==
[2022-04-20] MEDS ORDERED: LACTATED RINGERS 1,000 ML IV SCH (07:00)
[2022-04-20] MEDS ORDERED: LACTATED RINGERS 1,000 ML IV ONE (07:15)
[2022-04-20 07:25] VITALS: TEMP 97.1
[2022-04-20] MEDS ORDERED: MIDAZOLAM 2 MG/2 ML VIAL ONE (07:30)
[2022-04-20] MEDS ORDERED: methylPREDNISolone ACETATE 40 MG/ML 1 ML VIAL ONE (07:30)
[2022-04-20] MEDS ORDERED: fentaNYL (PF) 50 MCG/ML 2 ML AMP ONE (07:30)
[2022-04-20] MEDS ORDERED: IOPAMIDOL M200 10 ML VIAL ONE (07:30)
--- NOTE | 2022-04-20 07:40 | P.PCN ---
Date of Procedure: 04/20/22 Description of Procedure: PREOPERATIVE DIAGNOSIS: lumbar radiculopathy POSTOPERATIVE DIAGNOSIS: Lumbar radiculopathy PROCEDURE 1. Lumbar epidural steroid injection under fluoroscopic guidance at the L3-L4 level. 2. Lumbar epidurogram. Imaging: Fluoroscopy was used, images where saved to the medical record ANESTHESIA: Medication Administered by: Nurse Sedation Type: Moderate sedation Sedation Supervision start time: 731 Sedation Supervision end time: 740 EBL: Minimal PROCEDURE INDICATION: The patient with low back pain and radiculitis symptoms unresponsive to conservative treatment. Fluoroscopy was used to optimize visualization of the needle placement and to maximize safety. PROCEDURE DESCRIPTION / TECHNIQUE: The patient was seen and identified in the preoperative area. Risks, benefits, complications including but not limited to infections ,bleeding ,allergic reaction to the medications, nerve damage and incomplete pain relief , as well as alternatives to the procedure were discussed with the patient. The patient agreed to proceed with the procedure and signed the consent. IV was started, and vital signs were stable. Patient was taken to the OR and time out was completed. The patient was placed in the prone position on procedure table and a pillow was placed under the abdomen to reduce lumbar lordosis. The lumbosacral area was prepped and draped in the usual sterile fashion. Vitals were closely monitored during the procedure. Using anterior-posterior fluoroscopy, the L3-L4 interlaminar space was identified and the skin over this site was marked and then infiltrated with 1% lidocaine subcutaneously. Subsequently, a 20-gauge Tuohy epidural needle was inserted and advanced toward the epidural space using the Loss of resistance technique and guided by AP and lateral fluoroscopy. The correct needle position in the epidural space was verified with the injection of 1 mL of Omnipaque 180 contrast to observe an acceptable epidurogram, after negative aspiration for blood and CSF and in the absence of paresthesias. Again after negative aspiration, a 3 ml mixture containing 40mg of depomedrol and 2 ml of preserv ative free Normal Saline was injected and a washout of epidurogram was seen. Needle was withdrawn intact, skin was cleansed, and bandages were applied. COMPLICATIONS: None DISPOSITION / PLANS: The patient was placed in a supine position and transferred to the recovery area in a stable condition for observation. There was no evidence of lower extremity motor or sensory deficit after the procedure. Patient was discharged from the recovery room after meeting discharge criteria. Home discharge instructions were given to the patient by the staff. The patient was reexamined prior to discharge. The patient will follow up as directed. I discussed the patient needs to focus on mobility exercises including physical therapy exercises as well as weight loss techniques to order to improve his overall function.
[2022-04-20] MEDS ORDERED: IV FLUID CONTINUATION 1,000 ML IV ONE (07:42)
[2022-04-20 08:00] VITALS: BP 124/69; PULSE 72; RESP 18
--- NOTE | 2022-04-20 08:58 | FL ---
Intraoperative/procedural fluoroscopic services were provided for lumbar epidural injection. Total fl uoroscopy time is 3 seconds with a total of 1 submitted image to PACS. Please see the operative note for further details.
== END 2022-04-20 08:16 | disposition home or self-care (01) ==
LOC: ORPAIN 06:42
PROVIDERS: ATTEND Hospitalist
DX: M54.16 Radiculopathy, lumbar region (principal); Z88.6 Allergy status to analgesic agent
CPT/HCPCS: 62323; J2250; J1030; J3010; Q9966

== ENCOUNTER → 2022-05-12 | Outpatient (CLI) | payer MEDICARE, OTHER ==
[2022-05-12 08:42] VITALS: BP 144/83; PULSE 74; RESP 16; TEMP 97.8
--- NOTE | 2022-05-12 09:29 | P.PN ---
Subjective Progress Note Date: 05/12/22 This is for visit for this 46 years old male with a history of chronic severe low back pain with radiation to the right lower extremity associated with some numbness and tingling sensation, recently we have done RFA of the medial branch lumbar area and it helped his low back pain significantly, but he continued to have severe numbness and tingling sensation radiated from the back towards the right lower extremity to the right foot , and he feels occasional weakness in his right leg , he continued to use [place] 5/325 when necessary and he denies any side effects of the medication, he is getting prescription refill from Dr. Almonte ( spine surgeon ) recently we have done lumbar epidural steroid injection at L3 4 and patient reported that he got 40% improvement of his pain Objective - Vital Signs Vital signs: Vital Signs Temp 97.8 F 05/12/22 08:36 Pulse 74 05/12/22 08:36 Resp 16 05/12/22 08:36 BP 144/83 05/12/22 08:36 Pulse Ox 95 05/12/22 08:36 FiO2 Intake & Output 05/11/22 05/12/22 05/12/22 18:59 06:59 18:59 Weight 118.841 kg - Exam Physical Examinations : -Constitutiona : Cooperative , not in acute distress . -HEENT : nech : supple , no Lymphadenopathy , normal thyroid size . : eyes : no ptosis , no icterus, no photopho minerva . - neurologic : Cranial nerve II to XII intact , no focal neurological deffecit . -psychatric : alert , oriented X 3 , appropriate affect , intact judgment and insight . -Lymphatic : no Lymphadenopathy . - musculoskeltal : . Lumber spine moter stegnth lower extremities ,thigh and legs 5/5 Right side , 5/5 Left side Positive paresthesia on the right lower extremity L4-5 and L5-S1 distribution deep tendon reflexes : normal Knee Jerk , normal ankle Jerk lumber facet Loading Test =positive Right , positive Left Range of motion of the lumbar spine Flexion 30 degrees, extension 10 degrees strait leg raising test = positive at 30 degree right side, negative on the left side Fabere test= positive Right , and positive LT . tenderness over the Sacroiliac joint on the Right , and Left sides Assessment and Plan Plan: Assessment and plan= chronic low back pain secondary to lumbar degenerative disc disease , lumbar spondylosis with lumbar facet arthropathy . Lumbar radiculopathy, sacroiliitis Patient had partial benefit from lumbar epidural steroid injection he could benefits from right-sided transforaminal epidural steroid injection at L4 5 and L5-S1 under fluoroscopy guidance. procedure risk and benefits and alternatives discussed with the patient he agreed with proceeding Time with Patient: Less than 30
== END ==
LOC: PNWHC3 08:00
PROVIDERS: ATTEND Specialist
DX: M47.26 Other spondylosis with radiculopathy, lumbar region (principal); M51.36 Other intervertebral disc degeneration, lumbar region; M46.1 Sacroiliitis, not elsewhere classified; Z88.6 Allergy status to analgesic agent; Z91.030 Bee allergy status; F17.200 Nicotine dependence, unspecified, uncomplicated
CPT/HCPCS: 99211

== ENCOUNTER 2022-06-15 06:57 | Day surgery (SDC) | payer MEDICARE, OTHER ==
[2022-06-10 16:08] VITALS: BMI 40.6
[2022-06-15] MEDS ORDERED: LIDOCAINE 1% (10MG/ML) FOR IV START INTRADERMA PRN (07:21)
[2022-06-15] MEDS ORDERED: LACTATED RINGERS 1,000 ML IV SCH (07:21)
[2022-06-15 07:25] VITALS: RESP 16; TEMP 97.3
[2022-06-15] MEDS ORDERED: fentaNYL (PF) 50 MCG/ML 2 ML AMP ONE (08:00)
[2022-06-15] MEDS ORDERED: IOPAMIDOL M200 10 ML VIAL ONE (08:00)
[2022-06-15] MEDS ORDERED: methylPREDNISolone ACETATE 80 MG/ML 1 ML VIAL ONE (08:00)
[2022-06-15] MEDS ORDERED: MIDAZOLAM 2 MG/2 ML VIAL ONE (08:00)
--- NOTE | 2022-06-15 08:18 | P.PCN ---
Date of Procedure: 06/15/22 Procedure(s) Performed: PREOPERATIVE DIAGNOSIS: 1-Lumbar radiculopathy . 2-lumbar degenerative disc disease. 3-lumbar spondylosis with lumbar facet arthropathy. 4-history of lumbar laminectomy and fusion POSTOPERATIVE DIAGNOSIS: Same as preoperative diagnoses. PROCEDURE 1. Transforaminal epidural steroid injection under fluoroscopic guidance at right L4-5, and right L5-S1 level. (Fluoroscopy images stored on file in the radiology Department ) 2. Lumbar epidurogram . ANESTHESIA: Local with 1% lidocaine 3 ml , moderate sedation with intravenous Versed 2 mg and fentanyle 100 micrograms. Sedation start time : 08:04 . Sedation. stop time : 08:14 . EBL: Minimal PROCEDURE INDICATION: The patient with low back pain and radiculopathy symptoms unresponsive to conservative treatment. PROCEDURE DESCRIPTION / TECHNIQUE: The patient was seen and identified in the preoperative area. Risks, benefits, complications, and alternatives were discussed with the patient. The patient agreed to proceed with the procedure and signed the consent. IV was started, and vital signs were stable. Patient was taken to the OR and time out was completed. The patient was placed in the prone position on procedure table and a pillow was placed under the abdomen to reduce lumbar lordosis. The lumbosacral area was prepped and draped in the usual sterile fashion. Critical pause was taken. Vital signs were closely monitored during the procedure. Conscious sedation was used during the procedure to decrease patient s anxiety. Using oblique fluoroscopy, the chin of the ``Eric dog at right L4-5 level was identified, and the skin and deeper tissues just below was localized with 1% lidocaine. Subsequently, a 22-gauge 5-inch spinal needle was advanced under a tunneled view fluoroscopic guidance just underneath the chin of the ``Eric dog at the right L4-5 Under lateral fluoroscopy, the needle was then advanced to the posterior border of the interforaminal space. After negative aspiration of CSF and blood and with no paresthesias, 1 mL Isovue 200 contrast dye was injected excellent epidurogram and outlining of the nerve root Subsequently, 3 mL of block solution containing 40 mg Depo-Medrol and 2 mL of 0.9% normal saline PF was injected. Needle was removed and the same procedure was repeated at the right L5-S1 level . At the end of the procedure, skin was cleansed, and bandages were applied. COMPLICATIONS:none DISPOSITION / PLANS: The patient was placed in a supine position and transferred to the recovery area in a stable condition for observation. There was no evide nce of lower extremity motor or sensory deficit after the procedure. Patient was discharged from the recovery room after meeting discharge criteria. Home discharge instructions were given to the patient by the staff. The patient was reexamined prior to discharge.
[2022-06-15] MEDS ORDERED: IV FLUID CONTINUATION 1,000 ML IV ONE (08:28)
[2022-06-15 08:40] VITALS: BP 128/83; PULSE 71
--- NOTE | 2022-06-15 09:08 | FL ---
Intraoperative/procedural fluoroscopic services were provided for right foraminal lumbar epidural inj ection. Total fluoroscopy time is 6 seconds with a total of 4 submitted images to PACS. Please see th e operative note for further details.
== END 2022-06-15 08:55 | disposition home or self-care (01) ==
LOC: ORPAIN 06:57
PROVIDERS: ATTEND Specialist
DX: M51.16 Intervertebral disc disorders with radiculopathy, lumbar region (principal); M47.26 Other spondylosis with radiculopathy, lumbar region; Z98.1 Arthrodesis status; Z79.899 Other long term (current) drug therapy
CPT/HCPCS: 64483; J2250; J1040; J3010; Q9966; 99152

== ENCOUNTER → 2022-11-22 | Outpatient (CLI) | payer MEDICARE, OTHER ==
[2022-11-22 10:33] VITALS: BP 126/82; PULSE 72; RESP 18; TEMP 98.4
--- NOTE | 2022-11-22 14:29 | P.PAINPG ---
PQRS Measure Charge Sheet Comment: A 47 yr old male w son at side with a history of severe and chronic LBP secondary to lumbar DDD and spondylosis with facet arthropathy without myelopathy presents today for evaluation s/p R TFESI L4-L5, L5-S1. Pt states he experienced 50 % pain relief x 3-4 mo s/p procedure. Pain level is provoked at 6 /10 in intensity, constant, localized in the lumbar spine, achy in character w shooting tingling towards R toes. Pain is provoked by lifting. Pain is alleviated with PT 2 yrs ago, massage integrated w PT, use of a cane for ambulatory assistance, heat, ice, chiropractic treatments semi monthly x 2 mo, topicals, medications, topicals and rest. Oswestry axial pain score of 32. Interventional pain procedures completed include R TFESI L4-L5, L5-S1 (May 2022) Patient is currently on [place] Patient denies any side effects of the medication(s), denies excessive drowsiness or sleepiness, denies suicidal ideation and reports that the current pain medication is helping to control the pain and improve activities of daily living. Patient denies any motor or sensory deficits. Patient denies any fever or night sweats, denies any change in the bowel movements or urination. Physical Examination: -Constitutional: Cooperative. Not in acute distress . - Neurologic: Cranial nerve II to XII intact. No focal neurological deficits. - Psychatric: Alert & oriented x 3. Matching mood & appropriate affect. Judgment and insight intact. - Musculoskeletal: Cervical spine: Muscle bulk/ tone/ strength in the bilateral upper extremities normal Vertebral body tenderness to palpation over Spurling test positive Distraction test positive Facet loading test positive Thoracic spine Muscle bulk / tone/ strength in the bilateral paraspinal muscles normal Vertebral body tender to palpation over Facet loading test positive Lumbar spine: Motor bulk/ tone/ strength lower extremities , thigh and legs : 5/5 Deep tendon reflexes : Normal Knee Jerk. Normal Ankle Jerk . Vertebral body tenderness to palpation over L4, L5 Lumbar Facet Loading Test positive Straight Leg Raise: positive at <30 degrees right side/ left side Gaenslen's Test positive Sacral spine : Severe tenderness over the Sacroiliac joint: right side / left side Range of motion: Flexion of the lumbar spine <60 degrees Range of motion: Extension of the lumbar spine <20 degrees Gaenslen's Test positive Rajan test: positive right side / left side Thigh Thrust Test Sacral Thrust Test Assessment and plan: Chronic LBP secondary to lumbar DDD, spondylosis with facet arthropathy without myelopathy Recommendation of R TFESI L4-L5, L5-S1. May need a series of injections for optimal pain relief. Risks, benefits of procedure discussed and pt verbalized understanding. All patient questions answered I have spent less than 30 minutes on patient care today. Dr Aragon was available by phone for the evaluation of this patient. The time was used to review the medical records including relevant urine studies and Prescription history (MAPs), review of the available imaging, evaluation and examination of the patient, coordination of care with the medical staff and if applicable referring physicians, as well as creation of the medical record PQRS Narrative: Smoking Status Current every day smoker Hx Alcohol Use (MH) Yes: OCCAS Home Medications: Ambulatory Orders Hydrocodone/Acetaminophen [[place] 10-325] 1 each PO TID 07/25/18 Ustekinumab [Stelara] 1 injection SQ DIRECTED 02/25/22 Controlled Substance Measures - Controlled Substance Measures Is patient prescribed a controlled substance at discharge?: No
== END ==
LOC: PNWHC3 09:23
PROVIDERS: ATTEND Specialist
DX: M51.36 Other intervertebral disc degeneration, lumbar region (principal); M47.816 Spondylosis without myelopathy or radiculopathy, lumbar region; G89.29 Other chronic pain; F17.200 Nicotine dependence, unspecified, uncomplicated; M53.3 Sacrococcygeal disorders, not elsewhere classified; Z88.1 Allergy status to other antibiotic agents; Z91.030 Bee allergy status; Z88.8 Allergy status to other drugs, medicaments and biological substances
CPT/HCPCS: 99211

== ENCOUNTER → 2022-11-26 | Day surgery (SDC) | payer MEDICARE, OTHER ==
[2022-11-25 08:29] VITALS: BMI 43.6
[~2022-11-26] MED LIST changes: +PROPOFOL 10 MG/ML 20 ML VIAL IV ONE
[2022-11-26 13:50] VITALS: TEMP 97.5
--- NOTE | 2022-11-26 15:46 | P.PCN ---
Date of Procedure: 11/26/22 Procedure(s) Performed: BRIEF HISTORY: Patient is a 47-year-old pleasant male scheduled for an elective colonoscopy as a part of screening for colon cancer and family history of colon cancer. His sister was diagnosed with colon cancer at age 57 and paternal uncles at age 45 and 50 respectively. PROCEDURE PERFORMED: Colonoscopy with biopsy and follow with the biopsy results and if the biopsy result adenoma he can have a repeat colonoscopy in 3 years.. PREOPERATIVE DIAGNOSIS: Screening for colon cancer and family history of colon cancer. IV sedation per Anesthesia. PROCEDURE: After informed consent was obtained, the patient, was brought into the endoscopy unit. IV sedation was administered by Anesthesia under continuous monitoring. Digital rectal examination was normal. Initially the Olympus CF-160 flexible video colonoscope was then inserted in the rectum, gradually advanced into the cecum without any difficulty. Careful examination was performed as the scope was gradually being withdrawn. Ileocecal valve and the appendiceal orifice were visualized and appeared normal. Prep was excellent. Mucosa of the cecum, ascending colon, transverse colon, descending colon, sigmoid colon, and rectum appeared normal. The distal sigmoid colon there was a 3-4 mm polyp that was removed by cold biopsy. Scattered sigmoid diverticulosis seen. Retroflexion was performed in the rectum and no lesions were seen. The patient tolerated the procedure well. IMPRESSION: 3-4 mm sigmoid colon polyp status post cold biopsy Scattered sigmoid diverticulosis. RECOMMENDATIONS: Findings of this examination were discussed with the patient as well as his family. He was advised to follow with the biopsy results and have a repeat colonoscopy in 3 years..
[2022-11-26 16:06] VITALS: BP 124/83; PULSE 83; RESP 12
== END ==
LOC: ORWHC2ENDO 13:16
PROVIDERS: ATTEND Internal Medicine Gastroenterology
DX: Z12.11 Encounter for screening for malignant neoplasm of colon (principal); K63.5 Polyp of colon; K57.30 Diverticulosis of large intestine without perforation or abscess without bleeding; Z80.0 Family history of malignant neoplasm of digestive organs; I10 Essential (primary) hypertension; M10.9 Gout, unspecified; E66.01 Morbid (severe) obesity due to excess calories; Z68.41 Body mass index [BMI] 40.0-44.9, adult; Z87.442 Personal history of urinary calculi; Z88.6 Allergy status to analgesic agent; Z79.899 Other long term (current) drug therapy
CPT/HCPCS: 88305; 45380; J2704

== ENCOUNTER → 2024-03-19 | Outpatient (CLI) | payer MEDICARE, OTHER ==
[2024-03-19 10:10] VITALS: BP 130/79; PULSE 72; RESP 16
--- NOTE | 2024-03-19 14:34 | P.PAINPG ---
PQRS Measure Charge Sheet Comment: A 48 yr old male w son at side with a history of severe and chronic LBP secondary to radiculopathy, spondylosis with facet arthropathy without myelopathy presents today for evaluation. Pain level is provoked at 5-6 /10 in intensity, intermittent, localized in the lumbar spine, predominantly axial, tingly in character w shooting tingling towards RLE and foot. Pain is provoked by lifting. Pain is alleviated with PT 2 yrs ago, massage integrated w PT, use of a cane for ambulatory assistance, heat, ice, chiropractic treatments semi monthly x 2 mo, topicals, medications, repositioning and rest. Interventional pain procedures completed include BL RFA L2-L3/ L3-L4 (2021), R TFESI L4-L5, L5-S1 x2 (May 2022) Patient is currently on [place], BioFreeze Gel Patient denies any side effects of the medication(s), denies excessive drowsiness or sleepiness, denies suicidal ideation and reports that the current pain medication is helping to control the pain and improve activities of daily living. Patient denies any motor or sensory deficits. Patient denies any fever or night sweats, denies any change in the bowel movements or urination. Physical Examination: -Constitutional: Cooperative. Not in acute distress . - Neurologic: Cranial nerve II to XII intact. No focal neurological deficits. - Psychatric: Alert & oriented x 3. Matching mood & appropriate affect. Judgment and insight intact. - Musculoskeletal: Cervical spine: Muscle bulk/ tone/ strength in the bilateral upper extremities normal Vertebral body tenderness to palpation over Spurling test positive Distraction test positive Facet loading test positive Thoracic spine Muscle bulk / tone/ strength in the bilateral paraspinal muscles normal Vertebral body tender to palpation over Facet loading test positive Lumbar spine: Motor bulk/ tone/ strength lower extremities , thigh and legs : 5/5 Deep tendon reflexes : Normal Knee Jerk. Normal Ankle Jerk . Vertebral body tenderness to palpation over L4, L5 Lumbar Facet Loading Test positive Straight Leg Raise: positive at <30 degrees right side/ left side Gaenslen's Test positive Sacral spine : Severe tenderness over the Sacroiliac joint: right side / left side Range of motion: Flexion of the lumbar spine <60 degrees Range of motion: Extension of the lumbar spine <20 degrees Gaenslen's Test positive Rajan test: positive right side / left side Thigh Thrust Test Sacral Thrust Test Assessment and plan: Chronic LBP secondary to radiculopathy, spondylosis with facet arthropathy without myelopathy Recommendation of R TFESI L4-L5, L5-S1 #2. Risks, benefits of procedure discussed and pt verbalized understanding. Protocol for discontinuation/ continuation of medications lang procedure discussed. All patient questions answered I have spent less than 30 minutes on patient care today. Dr Aragon was available by phone for the evaluation of this patient. The time was used to review the medical records including relevant urine studies and Prescription history (MAPs), review of the available imaging, evaluation and examination of the patient, coordination of care with the medical staff and if applicable referring physicians, as well as creation of the medical record - Pain Location Lower Back Non-Pharmacological Interventions: Heat Pharmacological Interventions: Epidural, Scheduled Medication, Topical Medication PQRS Narrative: Smoking Status Current every day smoker Hx Alcohol Use (MH) Yes: OCCAS Home Medications: Ambulatory Orders Hydrocodone/Acetaminophen [[place] 10-325] 1 each PO TID PRN 07/25/18 Ustekinumab [Stelara] 1 injection SQ DIRECTED 02/25/22 diazePAM [Valium] 5 mg PO DAILY PRN 1 Days #2 tab 03/19/24 Controlled Substance Measures - Controlled Substance Measures Is patient prescribed a controlled substance at discharge?: Yes When asked, does pt state using other controlled substances?: Yes If prescribed controlled substance>3 days was MAPS reviewed?: Prescribed <3 Days
== END ==
LOC: PNWHC3 09:27
PROVIDERS: ATTEND Specialist
DX: M47.26 Other spondylosis with radiculopathy, lumbar region (principal); F17.200 Nicotine dependence, unspecified, uncomplicated; Z88.6 Allergy status to analgesic agent; Z88.8 Allergy status to other drugs, medicaments and biological substances; Z91.030 Bee allergy status
CPT/HCPCS: 99211

== ENCOUNTER 2024-04-10 10:02 | Day surgery (SDC) | payer MEDICARE ==
[2024-04-09 10:43] VITALS: BMI 40.2
[~2024-04-10 10:02] MED LIST changes: -PROPOFOL 10 MG/ML 20 ML VIAL IV ONE
[2024-04-10 10:25] VITALS: TEMP 97
[2024-04-10] MEDS ORDERED: IOPAMIDOL M300 15ML VIAL ONE (12:02)
[2024-04-10] MEDS ORDERED: DEXAMETHASONE SOD PHOSPHATE 10 MG/ML 1 ML VIAL ONE (12:02)
--- NOTE | 2024-04-10 12:41 | P.PCN ---
Description of Procedure: PREOPERATIVE DIAGNOSIS: 1-Lumbar radiculopathy . 2-lumbar degenerative disc disease. 3-lumbar spondylosis with lumbar facet arthropathy without myelopathy POSTOPERATIVE DIAGNOSIS: 1-lumbar radiculopathy. 2-lumbar degenerative disc disease. 3-lumbar spondylosis with facet arthropathy without myelopathy PROCEDURE 1. Transforaminal epidural steroid injection under fluoroscopic guidance at RIGHT L4-5,L5-S1 level. (Fluoroscopy images stored on file in the radiology Department ) 2. Lumbar epidurogram . ANESTHESIA: Local with 1% lidocaine 5 ml. subcutaneously. Continuous pulse ox, EKG, blood pressure and verbal communication was maintained with the patient. EBL: Minimal PROCEDURE INDICATION: The patient with low back pain and radiculopathy symptoms unresponsive to conservative treatment. The patient was seen and identified in the preoperative area. Risks, benefits, complications, and alternatives were discussed with the patient. The patient agreed to proceed with the procedure and signed the consent. IV was started, and vital signs were stable. PROCEDURE DESCRIPTION / TECHNIQUE: After getting consent, patient was taken to the OR and time out was completed. The patient was placed in the prone position on procedure table and a pillow was placed under the abdomen to reduce lumbar lordosis. The lumbosacral area was prepped and draped in the usual sterile fashion. Critical pause was taken. After injecting 5 mL of plain 1% lidocaine subcutaneously, under oblique view of the fluoroscope, a 22-gauge spinal needle was introduced under the tunnel view of the fluoroscope on the RIGH side L4-5 and the needle was advanced so that the tip of the needle was at the posterior inferior quadrant of the intervertebral foramen at the lateral view of the fluoroscope and in the lateral third of the facet column in the AP view of the fluoroscope. Negative CSF, negative blood, negative paresthesia. After needle position confirmation by AP and cross table lateral view, 3 mL of Isovue-M 200 contrast was injected under continuous fluoroscope. No contrast was noted in the intrathecal or intravascular space. The epidurogram was noted. Again after repeated negative aspiration 2.5 mL solution was injected which consists 1 mL of normal saline mixed with 1.5 mL of 15 mg dexamethasone. Needle was removed . Same procedure was repeated at the RIGHT L5-S1 side , using contrast under continuous fluoroscopy and using same amount of dexamethasone. At the end of the procedure, skin was cleansed, and bandages were applied. DISPOSITION / PLANS: No complication. The patient tolerated the procedure well. The patient was placed in a supine position and transferred to the recovery area in a stable condition for observation. There was no evidence of lower extremity motor or sensory deficit after the procedure. Patient was discharged from the recovery room after meeting discharge criteria. Home discharge instruc tions were given to the patient by the staff. The patient was reexamined prior to discharge.
[2024-04-10 13:01] VITALS: BP 127/72; PULSE 79; RESP 18
--- NOTE | 2024-04-10 13:29 | FL ---
EXAMINATION TYPE: FL guided pain mgmt statistic DATE OF EXAM: 04/10/2024 FLUOROSCOPY Rt Transforaminal Inj 1.31min fluoro time .[id number] Rocael Bennett 3 images are submitted. [facility], , 04/10/2024 1:27 PM
== END 2024-04-10 13:06 | disposition home or self-care (01) ==
LOC: ORPAIN 10:02
PROVIDERS: ATTEND Pain Medicine Interventional Pain Medicine
DX: M51.16 Intervertebral disc disorders with radiculopathy, lumbar region (principal); M47.26 Other spondylosis with radiculopathy, lumbar region; Z87.892 Personal history of anaphylaxis; Z88.6 Allergy status to analgesic agent; Z91.030 Bee allergy status
CPT/HCPCS: 64483; 64484; J1100; Q9967

== ENCOUNTER → 2024-06-11 | Outpatient (CLI) | payer MEDICARE, OTHER ==
[2024-06-11 12:16] VITALS: BP 128/84; PULSE 81; RESP 17; TEMP 98.6
--- NOTE | 2024-06-11 15:21 | P.PAINPG ---
PQRS Measure Charge Sheet Comment: A 48 yr old male w son at side with a history of severe and chronic LBP secondary to radiculopathy, spondylosis with facet arthropathy without myelopathy presents today for evaluation s/p R TFESI L4-L5, L5-S1 #2. Pt states he experienced 70 % pain relief x 8 wks s/p procedure. Pain level is provoked at 6 /10 in intensity, intermittent, localized in the lumbar spine, predominantly axial, tingly in character w shooting tingling towards RLE. Pain is provoked by over activity. Pain is alleviated with PT 2 yrs ago, massage integrated w PT, use of a cane for ambulatory assistance, heat, ice, chiropractic treatments semi monthly x 2 mo, topicals, medications, repositioning and rest. Interventional pain procedures completed include BL RFA L2-L3/ L3-L4 (2021), R TFESI L4-L5, L5-S1 x3 (May 2022, Mar 2024) Patient is currently on [place], BioFreeze Gel Patient denies any side effects of the medication(s), denies excessive drowsiness or sleepiness, denies suicidal ideation and reports that the current pain medication is helping to control the pain and improve activities of daily living. Patient denies any motor or sensory deficits. Patient denies any fever or night sweats, denies any change in the bowel movements or urination. Physical Examination: -Constitutional: Cooperative. Not in acute distress . - Neurologic: Cranial nerve II to XII intact. No focal neurological deficits. - Psychatric: Alert & oriented x 3. Matching mood & appropriate affect. Judgment and insight intact. - Musculoskeletal: Cervical spine: Muscle bulk/ tone/ strength in the bilateral upper extremities normal Vertebral body tenderness to palpation over Spurling test positive Distraction test positive Facet loading test positive Thoracic spine Muscle bulk / tone/ strength in the bilateral paraspinal muscles normal Vertebral body tender to palpation over Facet loading test positive Lumbar spine: Motor bulk/ tone/ strength lower extremities , thigh and legs : 5/5 Deep tendon reflexes : Normal Knee Jerk. Normal Ankle Jerk . Vertebral body tenderness to palpation over L4, L5 Lumbar Facet Loading Test positive Straight Leg Raise: positive at <30 degrees right side/ left side Gaenslen's Test positive Sacral spine : Severe tenderness over the Sacroiliac joint: right side / left side Range of motion: Flexion of the lumbar spine <60 degrees Range of motion: Extension of the lumbar spine <20 degrees Gaenslen's Test positive Rajan test: positive right side / left side Thigh Thrust Test Sacral Thrust Test Assessment and plan: Chronic LBP secondary to radiculopathy, spondylosis with facet arthropathy without myelopathy Recommendation of R TFESI L4-L5/ L5-S1 #2. Risks, benefits of procedure discussed and pt verbalized understanding. Protocol for discontinuation/ continuation of medications lang procedure discussed. All patient questions answered I have spent less than 30 minutes on patient care today. Dr Aragon was available by phone for the evaluation of this patient. The time was used to review the medical records including relevant urine studies and Prescription history (MAPs), review of the available imaging, evaluation and examination of the patient, coordination of care with the medical staff and if applicable referring physicians, as well as creation of the medical record PQRS Narrative: Smoking Status Current every day smoker Hx Alcohol Use (MH) Yes: OCCAS Home Medications: Ambulatory Orders Hydrocodone/Acetaminophen [[place] 10-325] 1 each PO TID PRN 07/25/18 Guselkumab [Tremfya] 100 mg SQ Q56D 04/09/24 Triamcinolone 0.1% Cream [Kenalog 0.1% Cream] 1 applicatio TOPICAL TID 04/09/24 diazePAM [Valium] 5 mg PO DAILY PRN 1 Days #2 tab 06/11/24 Controlled Substance Measures - Controlled Substance Measures Is patient prescribed a controlled substance at discharge?: Yes When asked, does pt state using other controlled substances?: No If prescribed controlled substance>3 days was MAPS reviewed?: Prescribed <3 Days
== END ==
LOC: PNWHC3 10:47
PROVIDERS: ATTEND Specialist
DX: M47.26 Other spondylosis with radiculopathy, lumbar region (principal); Z88.6 Allergy status to analgesic agent; Z88.8 Allergy status to other drugs, medicaments and biological substances; Z91.030 Bee allergy status
CPT/HCPCS: 99211

== ENCOUNTER 2024-06-14 06:12 | Day surgery (SDC) | payer MEDICARE, OTHER ==
[2024-06-14 06:51] VITALS: TEMP 98
[2024-06-14] MEDS ORDERED: LACTATED RINGERS 1,000 ML IV SCH (06:58)
[2024-06-14] MEDS ORDERED: IOPAMIDOL M300 15ML VIAL ONE (07:49)
[2024-06-14] MEDS ORDERED: DEXAMETHASONE SOD PHOSPHATE 10 MG/ML 1 ML VIAL ONE (07:49)
--- NOTE | 2024-06-14 08:13 | P.PCN ---
Description of Procedure: PREOPERATIVE DIAGNOSIS: 1-Lumbar radiculopathy . 2-lumbar degenerative disc disease. 3-lumbar spondylosis with lumbar facet arthropathy without myelopathy POSTOPERATIVE DIAGNOSIS: 1-lumbar radiculopathy. 2-lumbar degenerative disc disease. 3-lumbar spondylosis with facet arthropathy without myelopathy PROCEDURE 1. Transforaminal epidural steroid injection under fluoroscopic guidance at RIGHT L4-5 level,L5-S1 (Fluoroscopy images stored on file in the radiology Department ) 2. Lumbar epidurogram . ANESTHESIA: Local with 1% lidocaine 5 ml. subcutaneously. Continuous pulse ox, EKG, blood pressure and verbal communication was maintained with the patient. EBL: Minimal PROCEDURE INDICATION: The patient with low back pain and radiculopathy symptoms unresponsive to conservative treatment. The patient was seen and identified in the preoperative area. Risks, benefits, complications, and alternatives were discussed with the patient. The patient agreed to proceed with the procedure and signed the consent. IV was started, and vital signs were stable. PROCEDURE DESCRIPTION / TECHNIQUE: After getting consent, patient was taken to the OR and time out was completed. The patient was placed in the prone position on procedure table and a pillow was placed under the abdomen to reduce lumbar lordosis. The lumbosacral area was prepped and draped in the usual sterile fashion. Critical pause was taken. After injecting 5 mL of plain 1% lidocaine subcutaneously, under oblique view of the fluoroscope, a 22-gauge spinal needle was introduced under the tunnel view of the fluoroscope on the RIGHT side and the needle was advanced so that the tip of the needle was at the posterior inferior quadrant of the intervertebral for amen at the lateral view of the fluoroscope and in the lateral third of the facet column in the AP view of the fluoroscope. Negative CSF, negative blood, negative paresthesia. After needle position confirmation by AP and cross table lateral view, 1 mL of Isovue-M 200 contrast was injected under continuous fluoroscope. No contrast was noted in the intrathecal or intravascular space. The epidurogram was noted. Again after repeated negative aspiration 2.5 mL solution was injected which consists 1 mL of normal saline mixed with 1.5 mL of 15 mg dexamethasone. Needle was removed . Same procedure was repeated at the RIGHT L5-S1 level , using contrast under continuous fluoroscopy and using same amount of dexamethasone. At the end of the procedure, skin was cleansed, and bandages were applied. DISPOSITION / PLANS: No complication. The patient tolerated the procedure well. The patient was placed in a supine position and transferred to the recovery area in a stable condition for observation. There was no evidence of lower extremity motor or sensory deficit after the procedure. Patient was discharged from the recovery room after meeting discharge criteria. Home discharge instructions were given to the patient by the staff. The patient was reexamined prior to discharge.
[2024-06-14 08:16] VITALS: PULSE 67; RESP 18
[2024-06-14 08:28] VITALS: BP 123/78
--- NOTE | 2024-06-14 08:50 | FL ---
EXAMINATION TYPE: FL guided pain mgmt statistic DATE OF EXAM: 06/14/2024 FLUOROSCOPY transforaminal lumbar steroid injection, 98sec fl time, DAP=.[id number] 4 images are submitted. [facility], , 06/14/2024 8:47 AM
== END 2024-06-14 08:41 | disposition home or self-care (01) ==
LOC: ORPAIN 06:12
PROVIDERS: ATTEND Pain Medicine Interventional Pain Medicine
DX: M51.16 Intervertebral disc disorders with radiculopathy, lumbar region (principal); M47.26 Other spondylosis with radiculopathy, lumbar region
CPT/HCPCS: 64483; 64484; J1100; Q9967

== ENCOUNTER → 2024-07-09 | Outpatient (CLI) | payer MEDICARE ==
[2024-07-09 09:38] VITALS: BP 108/77; PULSE 76; RESP 18; TEMP 97.6
--- NOTE | 2024-07-09 15:32 | P.PAINPG ---
PQRS Measure Charge Sheet Comment: A 49 yr old male w son at side with a history of severe and chronic LBP > 5 yrs secondary to post laminectomy syndrome presents today for evaluation s/p R TFESI L4-L5, L5-S1 #2. Pt states he experienced 50 % pain relief x 2 wks s/p procedure. Pain level is provoked at 6 /10 in intensity, intermittent, localized in the lumbar spine, predominantly axial, tingly in character w shooting tingling towards RLE. Pain is provoked by over activity. Pain is alleviated with PT 2 yrs ago, massage integrated w PT, use of a cane for ambulatory assistance, heat, ice, chiropractic treatments semi monthly x 2 mo, topicals, medications, repositioning and rest. Interventional pain procedures completed include Caudal w Lysis (07/07), BL RFA L2-L3/ L3-L4 (2021), R TFESI L4-L5 x2 (04/08, 06/09), L5-S1 x3 (06/07) Patient is currently on [place], BioFreeze Gel Patient denies any side effects of the medication(s), denies excessive drowsiness or sleepiness, denies suicidal ideation and reports that the current pain medication is helping to control the pain and improve activities of daily living. Patient denies any motor or sensory deficits. Patient denies any fever or night sweats, denies any change in the bowel movements or urination. Physical Examination: -Constitutional: Cooperative. Not in acute distress . - Neurologic: Cranial nerve II to XII intact. No focal neurological deficits. - Psychatric: Alert & oriented x 3. Matching mood & appropriate affect. Judgment and insight intact. - Musculoskeletal: Cervical spine: Muscle bulk/ tone/ strength in the bilateral upper extremities normal Vertebral body tenderness to palpation over Spurling test positive Distraction test positive Facet loading test positive Thoracic spine Muscle bulk / tone/ strength in the bilateral paraspinal muscles normal Vertebral body tender to palpation over Facet loading test positive Lumbar spine: +Incisional Scar Motor bulk/ tone/ strength lower extremities , thigh and legs : 5/5 Deep tendon reflexes : Normal Knee Jerk. Normal Ankle Jerk . Vertebral body tenderness to palpation over L5 Lumbar Facet Loading Test positive Straight Leg Raise: positive at <30 degrees right side/ left side Gaenslen's Test positive Sacral spine : Severe tenderness over the Sacroiliac joint: right side / left side Range of motion: Flexion of the lumbar spine <60 degrees Range of motion: Extension of the lumbar spine <20 degrees Gaenslen's Test positive Rajan test: positive right side / left side Thigh Thrust Test Sacral Thrust Test Assessment and plan: Chronic LBP secondary to post laminectomy syndromne Recommendation of caudal MACI w lysis #1. Risks, benefits of procedure discussed and pt verbalized understanding. Protocol for discontinuation/ continuation of medications lang procedure discussed. All patient questions answered I have spent less than 30 minutes on patient care today. Dr Aragon was available by phone for the evaluation of this patient. The time was used to review the medical records including relevant urine studies and Prescription history (MAPs), review of the available imaging, evaluation and examination of the patient, coordination of care with the medical staff and if applicable referring physicians, as well as creation of the medical record - Pain Location Lower Back Pharmacological Interventions: Block PQRS Narrative: Smoking Status Current every day smoker Hx Alcohol Use (MH) Yes: OCCAS Home Medications: Ambulatory Orders Hydrocodone/Acetaminophen [[place] 10-325] 1 each PO TID PRN 07/25/18 Guselkumab [Tremfya] 100 mg SQ Q56D 04/09/24 Triamcinolone 0.1% Cream [Kenalog 0.1% Cream] 1 applicatio TOPICAL TID 04/09/24 LORazepam [Ativan] 2 mg PO DAILY 1 Days #1 tab 07/09/24 Controlled Substance Measures - Controlled Substance Measures Is patient prescribed a controlled substance at discharge?: Yes When asked, does pt state using other controlled substances?: Yes If prescribed controlled substance>3 days was MAPS reviewed?: Prescribed <3 Days
== END ==
LOC: PNWHC3 09:21
PROVIDERS: ATTEND Specialist
DX: M96.1 Postlaminectomy syndrome, not elsewhere classified (principal); G89.29 Other chronic pain; F17.210 Nicotine dependence, cigarettes, uncomplicated; Z88.6 Allergy status to analgesic agent; Z91.030 Bee allergy status
CPT/HCPCS: 99211

== ENCOUNTER 2024-07-24 06:29 | Day surgery (SDC) | payer MEDICARE ==
[2024-07-20 09:33] VITALS: BMI 40.2
[2024-07-24 06:58] VITALS: TEMP 97.9
[2024-07-24] MEDS: LACTATED RINGERS 1,000 ML IV SCH (07:03)
[2024-07-24] MEDS: IV FLUID CONTINUATION 1,000 ML IV ONE ×2 (07:04→07:54)
[2024-07-24] MEDS ORDERED: fentaNYL (PF) 50 MCG/ML 2 ML AMP ONE (07:24)
[2024-07-24] MEDS ORDERED: methylPREDNISolone ACETATE 80 MG/ML 1 ML VIAL ONE (07:24)
[2024-07-24] MEDS ORDERED: IOPAMIDOL M300 15ML VIAL ONE (07:24)
--- NOTE | 2024-07-24 08:02 | P.PCN ---
Description of Procedure: Preprocedure diagnosis. Postlaminectomy syndrome. Lumbar radiculopathy. Postprocedure diagnosis. As above. Procedure done. Injection of radiocontrast material into caudal epidural space. Caudal epidurogram. Lysis of epidural scar with cauda cath catheter. Caudal epidural steroid injection. Anesthesia. Fentanyl IV 150 microgram. Local infiltration anesthesia. Continuous pulse ox, EKG, blood pressure, verbal communication was maintained with the patient in OR. Tme start 0724. Stop 0746. Blood loss. None. Indication. Discussed the procedure and possible complications which may include infection bleeding nerve damage paralysis and aggravation of pain. Patient understands all questions were answered. Procedure note. IV antibiotic was given preoperative area. After getting consent patient was taken to the OR in prone position. Back prepped with chlorhexidine x 3. After injecting 10 cc of plain 1% lidocaine subcutaneously, a 17-gauge needle with flexible introducer plastic cannula was introduced through the sacral hiatus into the caudal epidural space. 5 cc of Isovue 300 contrast was injected. Contrast was deficient on the right side at L5-S1 area. Needle was taken out only keeping the flexible introducer cannula. 19-gauge brevi cath was introduced through the introducer cannula multiple times. Again 3 cc of Isovue-M 300 contrast was injected. Previous deficient contrast area was filled out this time. 3 cc solution was injected through the bravi cath cannula now. Solution consists of 2 cc of preservative-free normal saline mixed with 1 cc of 80 mg Depo-Medrol. Both the catheter and introducer cannula was removed. Disposition. Patient tolerated the procedure well. No complication. Discharged home in stable condition.
[2024-07-24 08:04] VITALS: RESP 18
--- NOTE | 2024-07-24 08:14 | FL ---
EXAMINATION TYPE: FL guided pain mgmt statistic DATE OF EXAM: 07/24/2024 7:55 AM COMPARISON: Pre Operative Images if available both CT/MRI or plain film CLINICAL INDICATION: Male, 49 years old with history of Caudal Inj; TECHNIQUE: FL guided pain mgmt statistic, multiple fluoroscopic images provided for procedure. DAP: 87.68 mGym2 Gycm2 uGym2 cGycm2 or equivalent. FINDINGS: Fluoroscopic images during injection for pain management demonstrate multilevel degeneration changes throughout the spine. No evidence for fracture. No acute process identified. IMPRESSION: 1. No evidence for intraoperative complication. 2. Please see the operative/procedural note for further details. [facility], , 07/24/2024 8:12 AM
[2024-07-24 08:19] VITALS: BP 121/80; PULSE 73
== END 2024-07-24 08:30 ==
LOC: ORPAIN 06:29
PROVIDERS: ATTEND Pain Medicine Interventional Pain Medicine
DX: M96.1 Postlaminectomy syndrome, not elsewhere classified (principal); M54.16 Radiculopathy, lumbar region; Z88.6 Allergy status to analgesic agent; Z91.030 Bee allergy status
CPT/HCPCS: 99152; 62264; J3010; Q9967; J1010; C1894

== ENCOUNTER → 2024-08-30 | Outpatient (CLI) | payer MEDICARE ==
--- NOTE | 2024-08-30 09:41 | XR ---
EXAMINATION TYPE: XR lumbar spine 2 or 3V DATE OF EXAM: 08/30/2024 CLINICAL HISTORY: pain TECHNIQUE: Three views of the lumbar spine are submitted. COMPARISON: Lumbar spine radiograph 11/24/2017, 11/23/2017, MRI lumbar spine 01/18/2020, 10/20/2017 FINDINGS: Post surgical changes with bilateral pedicular screws and rods and disc cage at L4-L5. Hardware appea rs intact with appropriate alignment. There are 5 lumbar type vertebral bodies identified. The lumba r spine shows satisfactory alignment without evidence of acute fracture or dislocation. Vertebral bod y heights are within normal limits. Disc space narrowing with endplate sclerosis at L5-S1. Multilev el facet arthropathy lower lumbar spine. The overlying soft tissue appears unremarkable. IMPRESSION: 1. No acute fracture or dislocation is seen in the lumbar spine. 2. Postsurgical changes from posterior fusion L5-S1. Hardware appears intact with appropriate alignm ent. 3. Mild degenerative disc disease. [facility], , 08/30/2024 9:39 AM
[2024-08-30 10:52] VITALS: BP 189/80; PULSE 81; RESP 16
--- NOTE | 2024-08-30 15:12 | P.PAINPG ---
PQRS Measure Charge Sheet Comment: A 49 yr old male w son at side with a history of severe and chronic LBP > 5 yrs secondary to post laminectomy syndrome presents today for evaluation s/p caudal MACI w lysis #1. Pt states he experienced 70 % pain relief x 4 wks s/p procedure. Pain level is provoked at 6 /10 in intensity, intermittent, localized in the lumbar spine, predominantly axial, tingly in character w shooting tingling towards RLE. Pain is provoked by over activity. Pain is alleviated with PT 2 yrs ago, massage integrated w PT, use of a cane for ambulatory assistance, heat, ice, chiropractic treatments semi monthly since Fall 2023, physician guided stretches daily since Fall 2023, topicals, medications, repositioning and rest. Interventional pain procedures completed include Caudal w Lysis (07/07, 08/07), BL RFA L2-L3/ L3-L4 (2021), R TFESI L4-L5 x2 (04/08, 06/09), L5-S1 x3 (06/07) Patient is currently on [place], BioFreeze Gel Patient denies any side effects of the medication(s), denies excessive drowsiness or sleepiness, denies suicidal ideation and reports that the current pain medication is helping to control the pain and improve activities of daily living. Patient denies any motor or sensory deficits. Patient denies any fever or night sweats, denies any change in the bowel movements or urination. Physical Examination: -Constitutional: Cooperative. Not in acute distress . - Neurologic: Cranial nerve II to XII intact. No focal neurological deficits. - Psychatric: Alert & oriented x 3. Matching mood & appropriate affect. Judgment and insight intact. - Musculoskeletal: Cervical spine: Muscle bulk/ tone/ strength in the bilateral upper extremities normal Vertebral body tenderness to palpation over Spurling test positive Distraction test positive Facet loading test positive Thoracic spine Muscle bulk / tone/ strength in the bilateral paraspinal muscles normal Vertebral body tender to palpation over Facet loading test positive Lumbar spine: +Incisional Scar Motor bulk/ tone/ strength lower extremities , thigh and legs : 5/5 Deep tendon reflexes : Normal Knee Jerk. Normal Ankle Jerk . Vertebral body tenderness to palpation over L5 Lumbar Facet Loading Test positive Straight Leg Raise: positive at <30 degrees right side/ left side Gaenslen's Test positive Sacral spine : Severe tenderness over the Sacroiliac joint: right side / left side Range of motion: Flexion of the lumbar spine <60 degrees Range of motion: Extension of the lumbar spine <20 degrees Gaenslen's Test positive Rajan test: positive right side / left side Thigh Thrust Test Sacral Thrust Test Assessment and plan: Chronic LBP secondary to post laminectomy syndromne Recommendation of lumbar x ray M54.16. Considering SCS Trial. All patient questions answered I have spent less than 30 minutes on patient care today. Dr Aragon was available by phone for the evaluation of this patient. The time was used to review the medical records including relevant urine studies and Prescription history (MAPs), review of the available imaging, evaluation and examination of the patient, coordination of care with the medical staff and if applicable referring physicians, as well as creation of the medical record PQRS Narrative: Smoking Status Current every day smoker Hx Alcohol Use (MH) Yes: OCCAS Home Medications: Ambulatory Orders Hydrocodone/Acetaminophen [[place] 10-325] 1 each PO TID PRN 07/25/18 Guselkumab [Tremfya] 100 mg SQ Q56D 04/09/24 Triamcinolone 0.1% Cream [Kenalog 0.1% Cream] 1 applicatio TOPICAL TID 04/09/24 Cholecalciferol (Vitamin D3) [Vitamin D3 (125 MCG = 5,000 IU)] 125 mcg PO DAILY 07/20/24 LORazepam [Ativan] 2 mg PO DIRECTED 07/20/24 Controlled Substance Measures - Controlled Substance Measures Is patient prescribed a controlled substance at discharge?: No
== END ==
LOC: PNWHC3 08:11
PROVIDERS: ATTEND Anesthesiology
DX: M51.360 Other intervertebral disc degeneration, lumbar region with discogenic back pain only (principal); G89.29 Other chronic pain; M96.1 Postlaminectomy syndrome, not elsewhere classified; F17.200 Nicotine dependence, unspecified, uncomplicated; Z91.030 Bee allergy status; Z88.6 Allergy status to analgesic agent
CPT/HCPCS: 72100; G0463; 99211

== ENCOUNTER → 2024-09-05 | Outpatient (CLI) | payer MEDICARE ==
--- NOTE | 2024-09-06 10:23 | MR ---
EXAMINATION TYPE: MR lumbar spine wo con DATE OF EXAM: 09/05/2024 9:20 PM COMPARISON: 01/18/2020. CLINICAL INDICATION: Male, 49 years old with history of M54.16; PHH, Low back pain that radiates down right leg, sometimes left. , Hx back surgery. TECHNIQUE: Multi planar, multi sequence imaging was performed utilizing: T1-weighted, T2-weighted, a nd turbo inversion recovery imaging of the lumbar spine. IV Contrast: mL (None, if empty) FINDINGS: Alignment: The lumbar vertebral bodies have preserved heights and alignment. Cord: The conus medullaris and the distal spinal cord appear unremarkable with regards to their signa l intensity and morphology. Bones/Discs: Fixation hardware L4-L5 with discectomy present. Mild degeneration changes throughout th e spine with facet joint arthropathy. Intervertebral disc signal is maintained. No abnormal inversion recovery signal to suggest bony edema. T12-L1: No evidence of significant spinal canal stenosis or neural foraminal stenosis. L1-L2: No evidence of significant spinal canal stenosis or neural foraminal stenosis. L2-L3: No evidence of significant spinal canal stenosis or neural foraminal stenosis. L3-L4: No evidence of significant spinal canal stenosis or neural foraminal stenosis. L4-L5: No evidence of significant spinal canal stenosis or neural foraminal stenosis. L5-S1: The disc has a rounded posterior morphology without significant spinal canal stenosis. Facet j oint arthropathy with mild bilateral neural foraminal stenosis. No significant spinal canal or neural foraminal stenosis in the remainder of the visualized levels. Other findings: None. IMPRESSION: No significant change from 01/18/2020. 1. No definitive evidence of disc herniation or significant spinal canal stenosis. 2. Postsurgical changes L4-L5. No evidence for significant spinal canal or neural foraminal stenosis . [facility], , 09/06/2024 10:21 AM
== END | disposition home or self-care (01) ==
LOC: RADMRIMAIN 20:45
PROVIDERS: ATTEND Specialist
DX: M47.27 Other spondylosis with radiculopathy, lumbosacral region (principal); Z98.890 Other specified postprocedural states
CPT/HCPCS: 72148

== ENCOUNTER → 2024-09-24 | Outpatient (CLI) | payer MEDICARE ==
[2024-09-24 08:08] VITALS: BP 127/85; PULSE 76; RESP 16
--- NOTE | 2024-09-24 16:01 | P.PAINPG ---
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 Pain level is provoked at 4-6 /10 in intensity, intermittent, localized in the lumbar spine, predominantly axial, tingly in character w shooting tingling towards R foot. Pain is provoked by over activity. Pain is alleviated with PT 2 yrs ago, massage integrated w PT, use of a cane for ambulatory assistance, heat, ice, chiropractic treatments semi monthly since Fall 2023, physician guided stretches daily since Fall 2023, topicals, medications, repositioning and rest. Interventional pain procedures completed include Caudal w Lysis (07/07, 08/07), BL RFA L2-L3/ L3-L4 (2021), R TFESI L4-L5 x2 (04/08, 06/09), L5-S1 x3 (06/07) Patient is currently on [place], BioFreeze Gel Patient denies any side effects of the medication(s), denies excessive drowsiness or sleepiness, denies suicidal ideation and reports that the current pain medication is helping to control the pain and improve activities of daily living. Patient denies any motor or sensory deficits. Patient denies any fever or night sweats, denies any change in the bowel movements or urination. Physical Examination: -Constitutional: Cooperative. Not in acute distress . - Neurologic: Cranial nerve II to XII intact. No focal neurological deficits. - Psychatric: Alert & oriented x 3. Matching mood & appropriate affect. Judgment and insight intact. - Musculoskeletal: Cervical spine: Muscle bulk/ tone/ strength in the bilateral upper extremities normal Vertebral body tenderness to palpation over Spurling test positive Distraction test positive Facet loading test positive Thoracic spine Muscle bulk / tone/ strength in the bilateral paraspinal muscles normal Vertebral body tender to palpation over Facet loading test positive Lumbar spine: +Incisional Scar Motor bulk/ tone/ strength lower extremities , thigh and legs : 5/5 Deep tendon reflexes : Normal Knee Jerk. Normal Ankle Jerk . Vertebral body tenderness to palpation over L5 Lumbar Facet Loading Test positive Straight Leg Raise: positive at <30 degrees right side/ left side Gaenslen's Test positive Sacral spine : Severe tenderness over the Sacroiliac joint: right side / left side Range of motion: Flexion of the lumbar spine <60 degrees Range of motion: Extension of the lumbar spine <20 degrees Gaenslen's Test positive Rajan test: positive right side / left side Thigh Thrust Test Sacral Thrust Test Imaging: MRI non contrast of the lumbar spine from 09/05/2024 reviewed Assessment and plan: Chronic LBP secondary to L4-L5 discectomy/fixation Recommendation of follow up w Dr Chinchilla. Documentation provided. Considering SCS Trial. All patient questions answered I have spent less than 30 minutes on patient care today. Dr Aragon was available by phone for the evaluation of this patient. The time was used to review the medical records including relevant urine studies and Prescription history (MAPs), review of the available imaging, evaluation and examination of the patient, coordination of care with the medical staff and if applicable referring physicians, as well as creation of the medical record PQRS Narrative: Smoking Status Current every day smoker Hx Alcohol Use (MH) Yes: OCCAS Home Medications: Ambulatory Orders Hydrocodone/Acetaminophen [[place]ma 10-325] 1 each PO TID PRN 07/25/18 Guselkumab [Tremfya] 100 mg SQ Q56D 04/09/24 Triamcinolone 0.1% Cream [Kenalog 0.1% Cream] 1 applicatio TOPICAL TID 04/09/24 Cholecalciferol (Vitamin D3) [Vitamin D3 (125 MCG = 5,000 IU)] 125 mcg PO DAILY 07/20/24 LORazepam [Ativan] 2 mg PO DIRECTED 07/20/24 Controlled Substance Measures - Controlled Substance Measures Is patient prescribed a controlled substance at discharge?: No
== END ==
LOC: PNWHC3 07:51
PROVIDERS: ATTEND Specialist
DX: M54.50 Low back pain, unspecified (principal); G89.29 Other chronic pain; F17.200 Nicotine dependence, unspecified, uncomplicated; Z98.890 Other specified postprocedural states; Z88.6 Allergy status to analgesic agent; Z91.030 Bee allergy status
CPT/HCPCS: 99212